=== PATIENT | female | born 1960 | race Caucasian/White ===

== ENCOUNTER 2016-11-03 18:10 | Emergency (ER) | payer MEDICARE ==
[~2016-11-03] VITALS: Ht 165.1 cm; Wt 158.0 kg
[~2016-11-03 18:10] MED LIST: ATOR-24 PO; CHOL100010 PO; CYAN10005 PO; GABA-113 PO; IRBE1TAB48 PO; TOPI25TA10 PO
[2016-11-03 18:15] VITALS: TEMP 36.8; Ht 165.1 cm; Wt 158.0 kg
--- NOTE | 2016-11-03 18:43 | EMERGENCY ROOM VISIT NOTE ---
History First contact with patient: 18:18 Chief Complaint: EDEMA TO EXTREMITY Stated Complaint: FEET LEGS SWOLLEN History of Present Illness The patient is a 56 year old female who presents to the Emergency Room via private vehicle with complaints of "feet/leg swollen". The patient states that she has been experiencing leg edema bilaterally for the past 2-3 months, but then states that she was started on what she believes was a water pill one year ago. She states that this is furosemide. She has only been taking this as needed. She states that for this past week she has been taking it daily, noting that it is 40 mg and although it does make her urinate her legs continue to enlarge. She states that they were enlarging to a point where it is painful to walk, there is a constant ache in them and the skin is begun to tear. There is associated shortness of breath, which she has attributed to her body habitus. She states that this has slightly worsened. She denies any history of blood clots, fevers, chills, history of heart failure. She is scheduled for a nuclear stress test soon as ordered by her family doctor from Dr. Mirta Rodas. She does not have a history of heart failure. Review of Systems A complete 10-point Review of Systems was discussed with the patient, with pertinent positives and negatives listed in the History of Present Illness. All remaining Review of Systems questions can be considered negative unless otherwise specified. Past Medical/Surgical History Medical Problems: (1) Ovarian cancer Family History FHx: cancer FHx: heart disease Social History Smoking Status: Current Every Day Smoker Marital Status: Housing Status: lives with family Occupation Status: disabled Current/Historical Medications Scheduled Atorvastatin (Lipitor), 1 TAB PO HS Duloxetine HCl (Duloxetine HCl), 30 MG PO DAILY Duloxetine HCl (Duloxetine HCl), 60 MG PO DAILY Furosemide (Lasix), 1 TAB PO DAILY Furosemide (Lasix), 1 TAB PO DAILY Gabapentin (Neurontin), 300 MG PO TID Irbesartan (Irbesartan), 150 MG PO DAILY Scheduled PRN Ibuprofen (Ibuprofen), 600 MG PO Q8 PRN for Pain Allergies Coded Allergies: No Known Allergies (Unverified , `, 04/26/15) Physical Exam Vital Signs Date Time Temp Pulse Resp B/P (MAP) Pulse Ox O2 Delivery O2 Flow Rate FiO2 11/03/16 23:31 80 14 124/76 97 11/03/16 23:26 82 20 97 11/03/16 23:11 83 15 97 11/03/16 22:56 96 21 97 11/03/16 22:31 103/85 11/03/16 22:26 81 14 97 11/03/16 22:11 80 17 96 11/03/16 22:01 112/72 11/03/16 21:56 87 20 95 11/03/16 21:41 88 23 96 11/03/16 21:36 89 26 96 11/03/16 21:31 129/72 11/03/16 21:29 138/75 11/03/16 20:36 99 24 94 11/03/16 20:32 147/81 11/03/16 20:21 86 18 97 11/03/16 20:06 85 21 99 11/03/16 20:01 123/81 11/03/16 19:51 86 21 97 11/03/16 19:38 91 16 96 11/03/16 19:36 93 13 97 11/03/16 19:31 131/78 11/03/16 19:25 91 19 98 11/03/16 19:10 92 18 96 11/03/16 19:06 98 Room Air 11/03/16 19:02 99 11/03/16 19:01 119/71 11/03/16 18:57 99/79 11/03/16 18:15 36.8 112 20 139/82 95 Room Air Physical Exam VITAL SIGNS - Vital signs and nursing notes were reviewed. Patient is afebrile , hypertensive at 139/82, tachycardic at a rate of 112 bpm, and is saturating on room air 95%. GENERAL -56-year-old female appearing her stated age who is in no acute distress. Communicates well with provider and answers questions appropriately. SKIN - Without rashes. No petechial rashes. The skin overlying the legs bilaterally is very tense. HEAD - NC/AT. EYES - Sclera anicteric. Palpebral conjunctiva pink and moist with no injection noted. MOUTH/OROPHARYNX - Without perioral cyanosis. NECK -no JVD LUNGS - Chest wall symmetric without accessory muscle use, intercostals retractions, or central cyanosis. Normal vesicular breath sounds CTA B/L. No wheezes, rales, or rhonchi appreciated. No crackles. CARDIAC - RRR with S1/S2. No murmur, rubs, or gallops appreciated. ABDOMEN - Abdominal contour without pulsations or visible masses. No tenderness , palpable masses, hepatosplenomegaly, or ascites noted. EXTREMITIES -there is 4+ pitting edema bilaterally in the lower extremities. Minimal edema in the upper extremities. NEUROLOGIC - Cranial nerves II through XII grossly intact. Sensory intact to light touch throughout. Medical Decision & Procedures ER Provider Diagnostic Interpretation: SINGLE VIEW CHEST CLINICAL HISTORY: Dyspnea. Lower extremity edema. FINDINGS: An AP, portable, upright chest radiograph is obtained. No prior studies are available for comparison at the time of dictation. The examination is severely degraded by portable technique, large body habitus, apical and out of positioning, and patient rotation. The cardiac silhouette is grossly normal for projection. The pulmonary vasculature is noncongested. The lungs and pleural spaces are grossly clear. No pneumothorax is seen. The bony thorax is grossly intact. Degenerative change and mild scoliosis are noted in the thoracic spine. IMPRESSION: No acute cardiopulmonary abnormality is identified. Electronically signed by: Mustapha De Leon M.D. 11/03/2016 6:58 PM Dictated Date/Time: 11/03/2016 6:57 PM ULTRASOUND BILATERAL LOWER EXTREMITY VENOUS CLINICAL HISTORY: Lower extremity edema. COMPARISON STUDY: No priors. TECHNIQUE: Real-time, grayscale, and color Doppler sonography of the deep veins of the right and left lower extremity was performed from the inguinal crease to the calf. Compression and augmentation were utilized. FINDINGS: There is no sonographic evidence of deep venous thrombosis identified in the right or left lower extremity. The common femoral, superficial femoral, and popliteal veins are patent and normally compressible bilaterally. The greater saphenous vein and the profunda femoris vein at the junction with the common femoral vein are clear in both legs. The visualized calf veins are patent bilaterally. IMPRESSION: There is no sonographic evidence of deep venous thrombosis identified in the right or left lower extremity. Electronically signed by: Mustapha De Leon M.D. 11/03/2016 9:30 PM Dictated Date/Time: 11/03/2016 9:[address] ANGIOGRAM OF THE CHEST CLINICAL HISTORY: Elevated d-dimer. Lower extremity edema. COMPARISON STUDY: Chest x-ray dated 11/03/2016. TECHNIQUE: Following the IV administration of 110 cc of Optiray 320, CT angiogram of the chest was performed from the upper abdomen to the thoracic inlet utilizing the pulmonary embolus protocol. Images are reviewed in the axial, sagittal, and coronal planes. 3-D MIPS images are created and assessed. IV contrast was administered without complication. The examination is degraded by large body habitus, and by streak artifact from the body wall abutting the CT gantry. CT DOSE: 759.89 mGy.cm FINDINGS: Thyroid: Imaged portions of the thyroid gland are normal in size and attenuation. Thoracic aorta: The thoracic aorta is normal in caliber and demonstrates standard 3-vessel arch anatomy. No dissection is seen. Pulmonary vasculature: The pulmonary trunk is normal in caliber. There are no filling defects identified in main, lobar, or segmental pulmonary branches to suggest pulmonary embolus. Heart: The heart is normal in size and configuration, and without pericardial effusion. Lungs and pleural spaces: The lungs and pleural spaces are clear noting bibasilar atelectasis. The trachea and central airways are patent. Mediastinum: There is no mediastinal lymphadenopathy. Leia: Clear. Axillae: There is no axillary lymphadenopathy. Upper abdomen: The liver is enlarged and steatotic. A tiny hiatal hernia is noted. Skeletal structures: No lytic or blastic bony lesions are seen. IMPRESSION: 1. There is no evidence of pulmonary embolus in the main, lobar, or segmental pulmonary arteries. 2. There is no airspace consolidation or pleural effusion. 3. Hepatomegaly and hepatic steatosis. Electronically signed by: Mustapha De Leon M.D. 11/03/2016 10:57 PM Dictated Date/Time: 11/03/2016 10:54 PM Laboratory Results 11/03/16 18:40 Red Blood Count 4.78, Mean Corpuscular Volume 95.8, Mean Corpuscular Hemoglobin 32.0, Mean Corpuscular Hemoglobin Concent 33.4, Mean Platelet Volume 9.8, Neutrophils (%) (Auto) 69.5, Lymphocytes (%) (Auto) 21.8, Monocytes (%) (Auto) 6.5, Eosinophils (%) (Auto) 1.4, Basophils (%) (Auto) 0.4, Neutrophils # (Auto) 5.58, Lymphocytes # (Auto) 1.75, Monocytes # (Auto) 0.52, Eosinophils # (Auto) 0.11, Basophils # (Auto) 0.03 11/03/16 18:40 Test 11/03/16 18:40 White Blood Count 8.02 K/uL (4.8-10.8) Red Blood Count 4.78 M/uL (4.2-5.4) Hemoglobin 15.3 g/dL (12.0-16.0) Hematocrit 45.8 % (37-47) Mean Corpuscular Volume 95.8 fL (80-100) Mean Corpuscular Hemoglobin 32.0 pg (25-34) Mean Corpuscular Hemoglobin Concent 33.4 g/dl (32-36) Platelet Count 198 K/uL (130-400) Mean Platelet Volume 9.8 fL (7.4-10.4) Neutrophils (%) (Auto) 69.5 % Lymphocytes (%) (Auto) 21.8 % Monocytes (%) (Auto) 6.5 % Eosinophils (%) (Auto) 1.4 % Basophils (%) (Auto) 0.4 % Neutrophils # (Auto) 5.58 K/uL (1.4-6.5) Lymphocytes # (Auto) 1.75 K/uL (1.2-3.4) Monocytes # (Auto) 0.52 K/uL (0.11-0.59) Eosinophils # (Auto) 0.11 K/uL (0-0.5) Basophils # (Auto) 0.03 K/uL (0-0.2) RDW Standard Deviation 53.0 fL (36.4-46.3) RDW Coefficient of Variation 15.1 % (11.5-14.5) Immature Granulocyte % (Auto) 0.4 % Immature Granulocyte # (Auto) 0.03 K/uL (0.00-0.02) D-Dimer 540 ug/L FEU (0-500) Anion Gap 8.0 mmol/L (3-11) Est Creatinine Clear Calc Drug Dose 97.7 ml/min Estimated GFR () 73.5 Estimated GFR (Non- 63.4 BUN/Creatinine Ratio 13.2 (10-20) Calcium Level 8.6 mg/dl (8.5-10.1) Total Bilirubin 0.2 mg/dl (0.2-1) Aspartate Amino Transf (AST/SGOT) 11 U/L (15-37) Alanine Aminotransferase (ALT/SGPT) 26 U/L (12-78) Alkaline Phosphatase 92 U/L (45-117) Total Protein 6.7 gm/dl (6.4-8.2) Albumin 3.1 gm/dl (3.4-5.0) Globulin 3.6 gm/dl (2.5-4.0) Albumin/Globulin Ratio 0.9 (0.9-2) Medical Decision Patient was seen and evaluated as above. After obtaining a thorough history and physical examination IV access was initiated and the above workup was performed. Patient presents to us today with shortness of breath and bilateral edema. Shortness of breath has been ongoing for 1 year as well as edema. Patient is stable at this time. Vital signs are stable. She is tachycardic at a rate of 112 bpm. BNP and troponin are normal. No evidence of heart failure. She is on Lasix. Her bedside EKG does reveal normal sinus rhythm, low voltage QRS septal infarct age undetermined. There is no previous for comparison. Patient states she has a nuclear stress test scheduled for this Saturday. I believe this will better evaluate this. No concerning leukocytosis or anemia noted. D-dimer high at 540. Electrolytes okay. Chloride high at 108. Creatinine 1.0. Random glucose at 117. AST low at 11. Albumin low at 3.1. Chest x-ray negative for acute process, mild scoliosis noted. Venous Doppler study negative bilaterally. In the chest CTA negative for PE. There is hepatomegaly, and hepatic steatosis of which the patient was informed to follow-up with her family doctor about. The patient did develop a little chest pain during her stay, which she states was when she was lying down when she was sat up she felt much better. This pain was reproducible with palpation. Patient was offered omission of the hospital, but prefers to go home with her follow-up stress test scheduled for Saturday. I do believe this is reasonable. At this time she is to use the CRISTINE hose, as well as diet modifications and lifestyle modifications. She is to return if worsening. She is to call her family doctor first thing Saturday morning to schedule follow-up. She was educated upon worrisome symptoms which to return, had questions or discharge, and was discharged home in good condition. She is currently on Lasix, but her prescriptions going to run out therefore I will fill this for 30 days. In evaluation treatment this patient following differential diagnoses entertained: SC, PE, heart failure, fluid overload, among others. Impression Primary Impression: Lower extremity edema Additional Impressions: Hepatomegaly Hepatic steatosis Shortness of breath Scoliosis of thoracic spine Departure Information Dispostion Home / Self-Care Condition FAIR Prescriptions Furosemide (LASIX) 40 Mg Tab 1 TAB PO DAILY for 30 Days, #30 TAB 5 Refills Prov: Christopher Henry PA-C 11/03/16 Referrals Betina Kirby M.D. (PCP) Patient Instructions My [facility] Additional Instructions You were seen in the emergency department today for your lower extremity swelling as well as your shortness of breath. At this time your EKG does show an abnormality, of which we recommend you pursue the nuclear stress test your you have scheduled and follow-up with her family doctor. Please also follow-up for your high blood pressure. Please call your family doctor first thing Saturday morning to schedule follow-up for your shortness of breath and leg swelling. It is recommended to restrict salt in your diet, and begin an exercise regimen to help promote fluid movement in the legs. Please use the stockings you were provided, it is best to take them off while sleeping, and when you wake up in the morning before you get out of bed please put them on that way throughout the day they will help with the gravity and pulling of the fluid. I did refill the Lasix prescription and sent it to your pharmacy. Please continue this but follow-up with your family doctor soon as possible. If you develop worsening of her symptoms please return immediately. Please return to the emergency department with any new/concerning symptoms. Thank you for your time. Problem Qualifiers Additional Impressions: Scoliosis of thoracic spine Scoliosis type: unspecified scoliosis Qualified Codes: M41.9 - Scoliosis, unspecified
[2016-11-03 18:50] LABS: BASO % 0.4 %; BASO ABS # 0.03 K/uL (0-0.2); COMPLETE YES; EOS % 1.4 %; HEMATOCRIT 45.8 % (37-47); IG% 0.4 %; LYMPH % 21.8 %; LYMPH ABS # 1.75 K/uL (1.2-3.4); MEAN CELL VOLUME 95.8 fL (80-100); MEAN CORPUSCULAR HGB CONC 33.4 g/dl (32-36); MEAN PLATELET VOLUME 9.8 fL (7.4-10.4); MONO % 6.5 %; NEUT % 69.5 %; PLATELET COUNT 198 K/uL (130-400); RED BLOOD COUNT 4.78 M/uL (4.2-5.4); WHITE BLOOD COUNT 8.02 K/uL (4.8-10.8)
[2016-11-03] MEDS ORDERED: MTR/600 PO (18:50)
[2016-11-03] MEDS ORDERED: CYM60 PO (18:51)
[2016-11-03] MEDS ORDERED: CYM30 PO (18:51)
[2016-11-03] MEDS ORDERED: FURO-85 PO (18:51)
--- NOTE | 2016-11-03 19:00 | DIAGNOSTIC IMAGING REPORT ---
SINGLE VIEW CHEST CLINICAL HISTORY: Dyspnea. Lower extremity edema. FINDINGS: An AP, portable, upright chest radiograph is obtained. No prior studies are available for comparison at the time of dictation. The examination is severely degraded by portable technique, large body habitus, apical and out of positioning, and patient rotation. The cardiac silhouette is grossly normal for projection. The pulmonary vasculature is noncongested. The lungs and pleural spaces are grossly clear. No pneumothorax is seen. The bony thorax is grossly intact. Degenerative change and mild scoliosis are noted in the thoracic spine. IMPRESSION: No acute cardiopulmonary abnormality is identified. Electronically signed by: Mustapha De Leon M.D. 11/03/2016 6:58 PM Dictated Date/Time: 11/03/2016 6:57 PM
[2016-11-03 19:06] VITALS: O2SAT 98
[2016-11-03 19:07] LABS: BUN/CREATININE RATIO 13.2 (10-20); CALCIUM 8.6 mg/dl (8.5-10.1)
[2016-11-03 19:10] LABS: ALB/GLOB RATIO 0.9 (0.9-2)
--- NOTE | 2016-11-03 21:31 | DIAGNOSTIC IMAGING REPORT ---
ULTRASOUND BILATERAL LOWER EXTREMITY VENOUS CLINICAL HISTORY: Lower extremity edema. COMPARISON STUDY: No priors. TECHNIQUE: Real-time, grayscale, and color Doppler sonography of the deep veins of the right and left lower extremity was performed from the inguinal crease to the calf. Compression and augmentation were utilized. FINDINGS: There is no sonographic evidence of deep venous thrombosis identified in the right or left lower extremity. The common femoral, superficial femoral, and popliteal veins are patent and normally compressible bilaterally. The greater saphenous vein and the profunda femoris vein at the junction with the common femoral vein are clear in both legs. The visualized calf veins are patent bilaterally. IMPRESSION: There is no sonographic evidence of deep venous thrombosis identified in the right or left lower extremity. Electronically signed by: Mustapha De Leon M.D. 11/03/2016 9:30 PM Dictated Date/Time: 11/03/2016 9:29 PM
[2016-11-03] MEDS ORDERED: OPTIRAY 320 IV PRN (22:30)
--- NOTE | 2016-11-03 22:58 | DIAGNOSTIC IMAGING REPORT ---
CT ANGIOGRAM OF THE CHEST CLINICAL HISTORY: Elevated d-dimer. Lower extremity edema. COMPARISON STUDY: Chest x-ray dated 11/03/2016. TECHNIQUE: Following the IV administration of 110 cc of Optiray 320, CT angiogram of the chest was performed from the upper abdomen to the thoracic inlet utilizing the pulmonary embolus protocol. Images are reviewed in the axial, sagittal, and coronal planes. 3-D MIPS images are created and assessed. IV contrast was administered without complication. The examination is degraded by large body habitus, and by streak artifact from the body wall abutting the CT gantry. CT DOSE: 759.89 mGy.cm FINDINGS: Thyroid: Imaged portions of the thyroid gland are normal in size and attenuation. Thoracic aorta: The thoracic aorta is normal in caliber and demonstrates standard 3-vessel arch anatomy. No dissection is seen. Pulmonary vasculature: The pulmonary trunk is normal in caliber. There are no filling defects identified in main, lobar, or segmental pulmonary branches to suggest pulmonary embolus. Heart: The heart is normal in size and configuration, and without pericardial effusion. Lungs and pleural spaces: The lungs and pleural spaces are clear noting bibasilar atelectasis. The trachea and central airways are patent. Mediastinum: There is no mediastinal lymphadenopathy. Leia: Clear. Axillae: There is no axillary lymphadenopathy. Upper abdomen: The liver is enlarged and steatotic. A tiny hiatal hernia is noted. Skeletal structures: No lytic or blastic bony lesions are seen. IMPRESSION: 1. There is no evidence of pulmonary embolus in the main, lobar, or segmental pulmonary arteries. 2. There is no airspace consolidation or pleural effusion. 3. Hepatomegaly and hepatic steatosis. Electronically signed by: Mustapha De Leon M.D. 11/03/2016 10:57 PM Dictated Date/Time: 11/03/2016 10:54 PM
[2016-11-03] MEDS ORDERED: FURO40TA3 PO (23:11)
[2016-11-03 23:31] VITALS: BP 124/76; PULSE 80; O2SAT 97
[2016-11-05 10:39] LABS: POINT OF CARE PRO-BNP 88 pg/ml (0-900); POINT OF CARE TROPONIN I < 0.030 ng/ml (0-0.045)
== END 2016-11-03 23:34 | disposition home or self-care (01) ==
LOC: C.EDB 18:11 → C.EDC 23:34
DX: R60.0 Localized edema (principal); R16.0 Hepatomegaly, not elsewhere classified; K76.0 Fatty (change of) liver, not elsewhere classified; R06.02 Shortness of breath; M41.9 Scoliosis, unspecified; F17.200 Nicotine dependence, unspecified, uncomplicated; Z85.43 Personal history of malignant neoplasm of ovary

== ENCOUNTER → 2016-11-09 | Outpatient (CLI) | payer MEDICARE ==
[~2016-11-09] MED LIST changes: +CAPS0.022 TOP; -CHOL100010 PO; -CYAN10005 PO; +CYM30 PO; +CYM60 PO; +FLX10 PO; +FURO-85 PO; +FURO40TA3 PO; +MELO15TA4 PO; +MTR/600 PO; +PREG1CAP70 PO; +REGADENOSON 0.4 MG/5 ML SYR ONE; -TOPI25TA10 PO
--- NOTE | 2016-11-09 17:37 | Myocardial Perfusion Study ---
Myocardial Perfusion Study Rpt Myocardial Perfusion Study Rpt Date of Service November 09, 2016 Myocardial Perfusion Study Rpt ONE DAY NUCLEAR MEDICINE TECHNETIUM 99 M CARDIOLITE MYOCARDIAL PERFUSION SCAN CLINICAL HISTORY: Chest pain syndrome COMPARISONS: None TECHNIQUE: For the stress portion of the study, 33.0 mCi of technetium 99 M Cardiolite IV was injected at 1:25 p.m. on November 09, 2016. 30 minutes following the injection, imaging of the heart was performed in multiple projections. For the rest portion of the study 11.5 mCi of technetium 99 M Cardiolite IV was injected at 11:35 a.m.. One hour following the injection, imaging of the heart was performed in the same projections. For the stress portion of the study, 0.4 mg of Lexiscan was injected intravenously as per protocol. The patient tolerated the infusion without difficulty. There were no EKG changes. Following the study, the patient was hemodynamically stable and without complaints. FINDINGS: The short axis, vertical long axis, and horizontal long axis images were reviewed in detail. There is normal perfusion at both stress and rest thus excluding a prior myocardial infarction or stress-induced myocardial ischemia. The left ventricle demonstrates hyperdynamic systolic function without wall motion abnormalities. The left ventricular ejection fraction is greater than 70 percent. IMPRESSION: 1. No scintigraphic evidence of a prior myocardial infarction or stress-induced myocardial ischemia. 2. No Lexiscan induced chest pain 3. No Lexiscan induced EKG changes. 4. Hyperdynamic left ventricular ejection fraction of greater than 70 percent without wall motion abnormalities.
== END | disposition home or self-care (01) ==
LOC: C.NUCL 10:59
PROVIDERS: ATTEND Physician Assistant Medical
DX: R07.9 Chest pain, unspecified (principal)

== ENCOUNTER 2017-01-13 10:10 | Emergency (ER) | payer MEDICARE ==
[~2017-01-13] VITALS: Ht 165.1 cm; Wt 149.3 kg
[~2017-01-13 10:10] MED LIST changes: -CAPS0.022 TOP; -FLX10 PO; -MELO15TA4 PO; -PREG1CAP70 PO; -REGADENOSON 0.4 MG/5 ML SYR ONE
[2017-01-13 10:13] VITALS: TEMP 36.3; Ht 165.1 cm; Wt 149.3 kg
[2017-01-13] MEDS ORDERED: FLX10 PO (10:20)
[2017-01-13] MEDS ORDERED: MELO15TA4 PO (10:20)
[2017-01-13] MEDS ORDERED: PREG1CAP70 PO (11:09)
[2017-01-13 11:11] LABS: BASO % 0.3 %; BASO ABS # 0.03 K/uL (0-0.2); COMPLETE YES; EOS % 2.3 %; IG% 0.5 %; LYMPH % 17.6 %; LYMPH ABS # 1.82 K/uL (1.2-3.4); MEAN CELL VOLUME 96.8 fL (80-100); MEAN CORPUSCULAR HGB CONC 34.1 g/dl (32-36); MEAN PLATELET VOLUME 10.3 fL (7.4-10.4); MONO % 7.3 %; PLATELET COUNT 194 K/uL (130-400); RED BLOOD COUNT 5.06 M/uL (4.2-5.4); WHITE BLOOD COUNT 10.35 K/uL (4.8-10.8)
[2017-01-13 11:11] LABS: URINE APPEARANCE CLEAR (CLEAR); URINE BILIRUBIN NEG (NEG); URINE COLOR YELLOW; URINE NITRITE NEG (NEG); URINE PH 5.5 (4.5-7.5); URINE SPECIFIC GRAVITY 1.008 (1.000-1.030); UROBILINOGEN NEG (NEG); ZZUR CULT IF INDIC CLEAN CATCH NO
--- NOTE | 2017-01-13 11:12 | DIAGNOSTIC IMAGING REPORT ---
CHEST ONE VIEW PORTABLE CLINICAL HISTORY: Back and left-sided rib pain. COMPARISON STUDY: Chest radiograph and chest CT November 03, 2016. FINDINGS: Evaluation is suboptimal due to portable technique and body habitus. However, no pneumothorax or pleural effusion is identified. There is no evidence of pulmonary edema. Cardiomediastinal silhouette is normal. There is no consolidation to suggest pneumonia. The appearance of the chest is unchanged. IMPRESSION: No acute cardiopulmonary findings. Electronically signed by: Iain Ferris M.D. 01/13/2017 11:11 AM Dictated Date/Time: 01/13/2017 11:10 AM
[2017-01-13] MEDS ORDERED: HYDROmorphone INJ 1 MG/ML SYR IV STA (11:16)
[2017-01-13 11:19] LABS: MANUAL MICROSCOPIC REQUIRED? NO; REVIEW REQ? NO
[2017-01-13 11:21] LABS: BUN/CREATININE RATIO 16.4 (10-20); CALCIUM 9.3 mg/dl (8.5-10.1); CREATININE 0.85 mg/dl (0.60-1.20)
[2017-01-13 11:24] LABS: ALB/GLOB RATIO 0.8 (0.9-2)
[2017-01-13] MEDS ORDERED: OPTIRAY 320 IV PRN (11:45)
--- NOTE | 2017-01-13 12:22 | DIAGNOSTIC IMAGING REPORT ---
CT ANGIOGRAPHY OF THE CHEST, PULMONARY EMBOLUS PROTOCOL CLINICAL HISTORY: Left flank pain, severe back pain and elevated d-dimer. COMPARISON STUDY: Chest CT November 03, 2016 and chest radiograph performed earlier today. TECHNIQUE: Following IV administration of 95 mL of Optiray-320, helical axial images of the chest were obtained utilizing the pulmonary embolus protocol. Maximal intensity projections and sagittal and coronal reformats were viewed on an independent 3D workstation. IV contrast was administered without complication. A dose lowering technique was utilized adhering to the principles of ALARA. CT DOSE: 606.90 mGy.cm FINDINGS: No pulmonary emboli are identified. There is no evidence of thoracic aortic dissection. Size of the heart is normal. There is no pericardial effusion. No enlarged thoracic lymph nodes are present. Central airways are patent. There is no pneumothorax or pleural effusion. There is no consolidation to suggest pneumonia. Bony thorax is unremarkable. IMPRESSION: 1. No pulmonary emboli identified. 2. No thoracic aortic dissection. 3. No acute intrathoracic findings. Electronically signed by: Iain Ferris M.D. 01/13/2017 12:21 PM Dictated Date/Time: 01/13/2017 12:15 PM
[2017-01-13] MEDS ORDERED: CAPS0.022 TOP (13:16)
--- NOTE | 2017-01-13 13:17 | EMERGENCY ROOM VISIT NOTE ---
History First contact with patient: 10:19 Chief Complaint: BACK PAIN Stated Complaint: SEVERE BACK PAIN History of Present Illness The patient is a 56 year old female who presents to the Emergency Room with complaints of severe left-sided flank/back pain 4 weeks. The patient states that her pain has been gradually worsening over the past 4 weeks. She was seen at [facility] emergency department and had a CT scan of her abdomen, labs and urinalysis, all of which were negative. She was told to follow-up with her primary care provider, but she called and they are not able to see her until next week. She rates her discomfort a 10/10. She denies any aggravating or alleviating factors. She has been taking hydrocodone at home without relief. She reports chronic numbness in her legs, but denies any new numbness or weakness. She denies nausea, vomiting or urinary symptoms. She denies shortness of breath or chest pain. She is a smoker. She denies any history of blood clots in the lungs. She denies cough. Review of Systems A complete 10 point review of systems was reviewed with the patient with pertinent positives and negatives as per history of present illness. All else were negative. Past Medical/Surgical History Medical Problems: (1) Ovarian cancer Family History FHx: cancer FHx: heart disease Social History Smoking Status: Current Every Day Smoker Marital Status: Housing Status: lives with family Occupation Status: disabled Current/Historical Medications Scheduled Atorvastatin (Lipitor), 1 TAB PO HS Cyclobenzaprine HCl (Cyclobenzaprine HCl), 10 MG PO BID Duloxetine HCl (Duloxetine HCl), 30 MG PO DAILY Duloxetine HCl (Duloxetine HCl), 60 MG PO DAILY Furosemide (Lasix), 1 TAB PO DAILY Irbesartan (Irbesartan), 150 MG PO DAILY Meloxicam (Meloxicam), 15 MG PO DAILY Pregabalin (Lyrica), 150 MG PO BID Scheduled PRN Capsaicin (Capsaicin), 1 APPLN TOP TID PRN for Pain Ibuprofen (Ibuprofen), 600 MG PO Q8 PRN for Pain Physical Exam Vital Signs Date Time Temp Pulse Resp B/P (MAP) Pulse Ox O2 Delivery O2 Flow Rate FiO2 01/13/17 13:42 77 18 131/76 98 01/13/17 12:10 77 18 133/77 98 Room Air 01/13/17 10:13 36.3 88 18 135/90 98 Room Air Physical Exam VITALS: Vitals are noted on the nurse's note and reviewed by myself. Vital signs stable. GENERAL: This is a 56-year-old female, in no acute distress, nondiaphoretic, well-developed well-nourished. SKIN: There are multiple small scars on the left flank and right flank consistent with previous abscesses. HEAD: Normocephalic atraumatic. EARS: External auditory canals clear, tympanic membranes pearly patterson without erythema or effusion bilaterally. EYES: Pupils equal round and reactive to light and accommodation. MOUTH: Mucous membranes moist. NECK: Supple without nuchal rigidity. No lymphadenopathy. HEART: Regular rate and rhythm without murmurs gallops or rubs. LUNGS: Clear to auscultation bilaterally without wheezes, rales or rhonchi. ABDOMEN: Soft, no abdominal tenderness to palpation. MUSCULOSKELETAL: There is mild, vague tenderness to the left flank. No tenderness over the thoracic spinous processes. NEURO: Patient is alert and oriented. Medical Decision & Procedures ER Provider Diagnostic Interpretation: CHEST ONE VIEW PORTABLE FINDINGS: Evaluation is suboptimal due to portable technique and body habitus. However, no pneumothorax or pleural effusion is identified. There is no evidence of pulmonary edema. Cardiomediastinal silhouette is normal. There is no consolidation to suggest pneumonia. The appearance of the chest is unchanged. IMPRESSION: No acute cardiopulmonary findings. CT ANGIOGRAPHY OF THE CHEST, PULMONARY EMBOLUS PROTOCOL FINDINGS: No pulmonary emboli are identified. There is no evidence of thoracic aortic dissection. Size of the heart is normal. There is no pericardial effusion. No enlarged thoracic lymph nodes are present. Central airways are patent. There is no pneumothorax or pleural effusion. There is no consolidation to suggest pneumonia. Bony thorax is unremarkable. IMPRESSION: 1. No pulmonary emboli identified. 2. No thoracic aortic dissection. 3. No acute intrathoracic findings. Laboratory Results 01/13/17 10:55 Red Blood Count 5.06, Mean Corpuscular Volume 96.8, Mean Corpuscular Hemoglobin 33.0, Mean Corpuscular Hemoglobin Concent 34.1, Mean Platelet Volume 10.3, Neutrophils (%) (Auto) 72.0, Lymphocytes (%) (Auto) 17.6, Monocytes (%) (Auto) 7.3, Eosinophils (%) (Auto) 2.3, Basophils (%) (Auto) 0.3, Neutrophils # (Auto) 7.45, Lymphocytes # (Auto) 1.82, Monocytes # (Auto) 0.76, Eosinophils # (Auto) 0.24, Basophils # (Auto) 0.03 01/13/17 10:55 Test 01/13/17 10:55 01/13/17 11:00 White Blood Count 10.35 K/uL (4.8-10.8) Red Blood Count 5.06 M/uL (4.2-5.4) Hemoglobin 16.7 g/dL (12.0-16.0) Hematocrit 49.0 % (37-47) Mean Corpuscular Volume 96.8 fL (80-100) Mean Corpuscular Hemoglobin 33.0 pg (25-34) Mean Corpuscular Hemoglobin Concent 34.1 g/dl (32-36) Platelet Count 194 K/uL (130-400) Mean Platelet Volume 10.3 fL (7.4-10.4) Neutrophils (%) (Auto) 72.0 % Lymphocytes (%) (Auto) 17.6 % Monocytes (%) (Auto) 7.3 % Eosinophils (%) (Auto) 2.3 % Basophils (%) (Auto) 0.3 % Neutrophils # (Auto) 7.45 K/uL (1.4-6.5) Lymphocytes # (Auto) 1.82 K/uL (1.2-3.4) Monocytes # (Auto) 0.76 K/uL (0.11-0.59) Eosinophils # (Auto) 0.24 K/uL (0-0.5) Basophils # (Auto) 0.03 K/uL (0-0.2) RDW Standard Deviation 52.3 fL (36.4-46.3) RDW Coefficient of Variation 14.8 % (11.5-14.5) Immature Granulocyte % (Auto) 0.5 % Immature Granulocyte # (Auto) 0.05 K/uL (0.00-0.02) D-Dimer 1160 ug/L FEU (0-500) Anion Gap 7.0 mmol/L (3-11) Est Creatinine Clear Calc Drug Dose 110.9 ml/min Estimated GFR () 89.4 Estimated GFR (Non- 77.1 BUN/Creatinine Ratio 16.4 (10-20) Calcium Level 9.3 mg/dl (8.5-10.1) Total Bilirubin 0.3 mg/dl (0.2-1) Aspartate Amino Transf (AST/SGOT) 13 U/L (15-37) Alanine Aminotransferase (ALT/SGPT) 29 U/L (12-78) Alkaline Phosphatase 120 U/L (45-117) Total Protein 7.6 gm/dl (6.4-8.2) Albumin 3.4 gm/dl (3.4-5.0) Globulin 4.2 gm/dl (2.5-4.0) Albumin/Globulin Ratio 0.8 (0.9-2) Lipase 137 U/L (73-393) Urine Color YELLOW Urine Appearance CLEAR (CLEAR) Urine pH 5.5 (4.5-7.5) Urine Specific [place] 1.008 (1.000-1.030) Urine Protein NEG (NEG) Urine Glucose (UA) NEG (NEG) Urine Ketones NEG (NEG) Urine Occult Blood NEG (NEG) Urine Nitrite NEG (NEG) Urine Bilirubin NEG (NEG) Urine Urobilinogen NEG (NEG) Urine Leukocyte Esterase NEG (NEG) Medications Administered Medications (Trade) Dose Ordered Sig/Mack Route Start Time Stop Time Status Last Admin Dose Admin Hydromorphone HCl (Dilaudid Inj) 1 mg NOW STAT IV 01/13/17 11:16 01/13/17 11:17 DC 01/13/17 11:25 1 MG ED Course The patient was evaluated as above. Labs were drawn and IV access was obtained. Patient was medicated with 1 mg Dilaudid IV. D-dimer was found to be elevated. Findings were discussed with the patient. CT of the chest was performed and read by radiology as above. Patient was reevaluated and felt much better. Findings were discussed. Discharge instructions were reviewed with the patient. The patient verbalized understanding of my assessment and treatment plan and was discharged home in good condition. Medical Decision Differential diagnosis includes pulmonary embolism, pneumonia, pyelonephritis, kidney stone, herpes zoster, musculoskeletal pain, among others. The patient is a 56-year-old female who presents today complaining of left flank pain. Labs revealed no leukocytosis, anemia or concerning electrolyte abnormality. Urinalysis was not suggestive of infection. There was no blood in the urine. D-dimer was found to be elevated and CT of the chest for PE was performed and showed no evidence of pulmonary embolism. The patient evidently already had a CT of the abdomen and pelvis performed at [facility]. I did attempt to obtain these records, but did not receive anything from the [facility]. The source of the patient's pain is unclear. She may have herpes zoster, but does not have a rash at this time. She was given capsaicin cream and instructed to follow-up with herpes be as scheduled. Based on the patient's presentation and work up, I feel the patient is stable for outpatient treatment. The patient was educated to return to the emergency department for any worsening of their current condition or new/concerning symptoms. She will follow up with her PCP. The patient's case was reviewed with Dr. Tomlin, ED attending physician, who agreed with my assessment and treatment plan. Medication Reconcilliation Current Medication List: was personally reviewed by me Blood Pressure Screening Patient's blood pressure: Elevated blood pressure Blood pressure disposition: Elevated BP felt to be situational Impression Primary Impression: Left flank pain Departure Information Dispostion Home / Self-Care Condition GOOD Prescriptions Capsaicin (CAPSAICIN) 0.025 % Cre 1 APPLN TOP TID Y for Pain, #1 TUBE Prov: Dione Alexandra ., ALEJANDRO 01/13/17 Referrals Betina Kirby M.D. (PCP) Patient Instructions My [facility] Additional Instructions For pain control, you can use the following [id number] medicines (if >12 yo): - Regular strength (325mg/tab) Tylenol (acetaminophen) 2 tabs every 4-6 hours as needed. Do not exceed 12 tablets in a 24 hour period. Avoid taking more than 4 grams (4000 mg) of Tylenol per day. This includes any other sources of acetaminophen you may take on a regular basis. - Regular strength (200 mg/tab) Advil (ibuprofen) 1-2 tabs every 4-6 hours as needed. Do not exceed a dose of 3200 mg per day. Apply the capsaicin cream 2-3 times daily as needed for pain. Follow-up with your primary care provider for further evaluation. Return to the emergency department with any worsening or new/concerning symptoms.
[2017-01-13 13:42] VITALS: BP 131/76; PULSE 77; O2SAT 98
== END 2017-01-13 13:45 | disposition home or self-care (01) ==
LOC: C.EDB 10:11 → C.EDC 13:45
DX: R10.30 Lower abdominal pain, unspecified (principal); F17.210 Nicotine dependence, cigarettes, uncomplicated; R20.0 Anesthesia of skin; Z85.43 Personal history of malignant neoplasm of ovary; Z80.9 Family history of malignant neoplasm, unspecified; Z79.899 Other long term (current) drug therapy

== ENCOUNTER 2019-10-28 22:12 | Observation (INO) ==
--- NOTE | 2019-10-28 22:57 | Emergency Department Note ---
History of Present Illness General Chief complaint: Nausea Stated complaint: NAUSEA - LOWER BACK PAIN - VOMITING Time Seen by Provider: 10/28/19 22:43 History of Present Illness Maximum Pain Intensity: 7 This is a 59-year-old female that presents to the emergency department via private vehicle with complaints of "nausea, lower back pain, vomiting". The patient states that the past few days she has been experiencing abdominal discomfort and nausea. Late last night she developed right-sided lower abdominal pain and then she notes that this persisted and then developed nausea. She states that the persistence of pain and nausea caused her to present to [facility] emergency department shortly before noon time today. She states that she had a CT scan and has a hernia in the ventral region. She states that she was discharged and then returned later in the evening time and was going to had another CT scan but she states that she left AMA as she felt the staff was rude. She presents to us today noting persistent nausea and vomiting and points to the epigastric region as a location of discomfort that she currently rates as a 7/10. She states that after leaving AMA from [place] she came directly here. Home Medications Home Medications Medication Instructions Recorded Confirmed Type atorvastatin 20 mg PO DAILY 10/28/19 10/28/19 History ciprofloxacin HCl [Cipro] 500 mg PO BID 10/28/19 10/28/19 History cyclobenzaprine 10 mg PO BID PRN 10/28/19 10/28/19 History diazepam 5 mg PO Q12 PRN 10/28/19 10/28/19 History duloxetine 30 mg PO DAILY 10/28/19 10/28/19 History irbesartan 150 mg PO DAILY 10/28/19 10/28/19 History triamterene-hydrochlorothiazid 1 tab PO DAILY 10/28/19 10/28/19 History Allergies Allergy/AdvReac Type Severity Reaction Status Date / Time No Known Allergies Allergy ` Unverified 10/28/19 22:54 Past Med/Surg History Medical History Hx of ovarian cancer Surgical History Hx of cholecystectomy Hx of hernia repair Social History Preferred Language: [place]arag[place] Communication Ability: Effective Slackline Operator Required: No Beliefs That Will Affect Care: None Current Living Situation: Spouse and Family Other Information That Helps Us Care for You: No Feels Safe at Home: Yes Safety Concerns: Feels Safe At This Time Smoking Status: Current every day smoker Tobacco Type: cigarettes ; Cigarettes Per Day: 10 ; Do You Dip or Chew Tobacco: No ; Second Hand Exposure: Yes ; Tobacco Cessation Education Requested by Patient: No Hx Alcohol Use: No Hx Substance Use: Yes substance use type: marijuana Substance Use Type Other:: medical marijuana use here and there Last Used Substance: Hours (ago) Review of Systems A total of 10 systems reviewed and were otherwise negative Physical Exam Vital Signs Vital Signs - 24 hr 10/28/19 22:15 10/28/19 23:35 10/29/19 00:05 Temperature 36.5 C Temperature Source Oral Pulse Rate 86 Pulse Rate [Apical] 60 82 Respiratory Rate 22 18 24 Respiratory Effort / Characteristics Non-Labored Respiratory Depth Normal Normal Blood Pressure 117/84 Blood Pressure [Left Arm] Blood Pressure [Right Arm] 134/98 138/80 Blood Pressure Mean 95 Blood Pressure Mean [Left Arm] Blood Pressure Mean [Right Arm] 110 99 Blood Pressure Position [Left Arm] Pulse Oximetry 98 96 98 Oxygen Delivery Method Room Air Room Air Room Air Oxygen Flow Rate Sepsis Recent Fever Within 48 Hours No Sepsis Action Taken by Nursing No Action Required 10/29/19 00:19 10/29/19 00:21 10/29/19 00:30 Temperature Temperature Source Pulse Rate 87 Pulse Rate [Apical] Respiratory Rate 18 20 Respiratory Effort / Characteristics Respiratory Depth Blood Pressure 140/76 Blood Pressure [Left Arm] Blood Pressure [Right Arm] Blood Pressure Mean 112 Blood Pressure Mean [Left Arm] Blood Pressure Mean [Right Arm] Blood Pressure Position [Left Arm] Pulse Oximetry 88 L 93 97 Oxygen Delivery Method Room Air Nasal Cannula Oxygen Flow Rate 3 Sepsis Recent Fever Within 48 Hours Sepsis Action Taken by Nursing 10/29/19 00:58 10/29/19 01:00 10/29/19 01:16 Temperature Temperature Source Pulse Rate 78 Pulse Rate [Apical] 73 Respiratory Rate 18 16 Respiratory Effort / Characteristics Non-Labored Respiratory Depth Normal Blood Pressure 107/61 Blood Pressure [Left Arm] 101/70 Blood Pressure [Right Arm] 92/53 L Blood Pressure Mean 67 Blood Pressure Mean [Left Arm] 80 Blood Pressure Mean [Right Arm] 66 Blood Pressure Position [Left Arm] Pulse Oximetry 96 95 Oxygen Delivery Method Nasal Cannula Nasal Cannula Oxygen Flow Rate 3 3 Sepsis Recent Fever Within 48 Hours Sepsis Action Taken by Nursing 10/29/19 01:30 10/29/19 01:45 10/29/19 02:00 Temperature Temperature Source Pulse Rate 81 83 79 Pulse Rate [Apical] Respiratory Rate 18 19 18 Respiratory Effort / Characteristics Respiratory Depth Blood Pressure 131/72 136/96 99/56 L Blood Pressure [Left Arm] Blood Pressure [Right Arm] Blood Pressure Mean 83 101 61 Blood Pressure Mean [Left Arm] Blood Pressure Mean [Right Arm] Blood Pressure Position [Left Arm] Pulse Oximetry 94 96 94 Oxygen Delivery Method Nasal Cannula Oxygen Flow Rate 3 Sepsis Recent Fever Within 48 Hours Sepsis Action Taken by Nursing 10/29/19 02:12 10/29/19 02:15 10/29/19 02:30 Temperature Temperature Source Pulse Rate 91 H 80 92 H Pulse Rate [Apical] Respiratory Rate 15 17 18 Respiratory Effort / Characteristics Respiratory Depth Blood Pressure 99/56 L 108/58 L 123/78 Blood Pressure [Left Arm] Blood Pressure [Right Arm] Blood Pressure Mean 61 72 93 Blood Pressure Mean [Left Arm] Blood Pressure Mean [Right Arm] Blood Pressure Position [Left Arm] Pulse Oximetry 93 94 94 Oxygen Delivery Method Nasal Cannula Nasal Cannula Nasal Cannula Oxygen Flow Rate 3 3 3 Sepsis Recent Fever Within 48 Hours Sepsis Action Taken by Nursing 10/29/19 02:45 Temperature Temperature Source Pulse Rate Pulse Rate [Apical] 82 Respiratory Rate 16 Respiratory Effort / Characteristics Respiratory Depth Normal Blood Pressure Blood Pressure [Left Arm] 121/90 Blood Pressure [Right Arm] Blood Pressure Mean Blood Pressure Mean [Left Arm] 100 Blood Pressure Mean [Right Arm] Blood Pressure Position [Left Arm] Lying Pulse Oximetry 96 Oxygen Delivery Method Room Air Oxygen Flow Rate Sepsis Recent Fever Within 48 Hours Sepsis Action Taken by Nursing VITAL SIGNS - Vital signs and nursing notes were reviewed. Stable and afebrile. GENERAL -59-year-old female appearing her stated age who is in no acute distress but appears to be in pain and is holding the epigastric region with her hands. Communicates well with provider and answers questions appropriately. SKIN - Without rashes. HEAD - NC/AT. EYES - Sclera anicteric. EARS - No deformities of external structures noted on gross examination bilaterally. NOSE - Midline and without cyanosis. No epistaxis or purulent drainage noted. MOUTH/OROPHARYNX - Without perioral cyanosis. NECK - Neck with FROM. LUNGS - Chest wall symmetric without accessory muscle use, intercostals retractions, or central cyanosis. Normal vesicular breath sounds CTA B/L. No wheezes, rales, or rhonchi appreciated. CARDIAC - RRR with S1/S2. No murmur, rubs, or gallops appreciated. ABDOMEN - Abdominal contour normal without pulsations or visible masses. BS normoactive all four quadrants. Epigastric TTP noted. No palpable hernia on examination. It is important note that small hernias may un appreciable secondary to body habitus. No palpable masses, hepatosplenomegaly, or ascites noted. EXTREMITIES - No clubbing or peripheral cyanosis. No pretibial edema present. +5/5 strength noted in UE/LE bilaterally. NEUROLOGIC - Cranial nerves II through XII grossly intact. Sensory intact to light touch throughout. PSYCH - A&O, and cooperates fully with examiner. Pt is very pleasant and interacts well with examiner. Course Administered Medications Sodium Chloride (Nss 1000ml) 1,000 mls @ 150 mls/hr IV .Q6H40M [facility] Stop: 11/28/19 04:33 Last Admin: 10/29/19 06:45 Dose: 150 mls/hr Documented by: [id number] Metronidazole (Flagyl) 500 mg in 100 mls @ 100 mls/hr IV Q8H [facility] Stop: 11/08/19 04:59 Last Infusion: 10/29/19 06:05 Dose: 0 mls/hr Documented by: [id number] Admin: 10/29/19 05:02 Dose: 100 mls/hr Documented by: [id number] Ciprofloxacin (Cipro) 400 mg in 200 mls @ 100 mls/hr IV Q12H [facility]; Protocol Stop: 11/08/19 05:59 Last Infusion: 10/29/19 07:02 Dose: 0 mls/hr Documented by: [id number] Admin: 10/29/19 05:02 Dose: 100 mls/hr Documented by: [id number] Ioversol (Optiray 320 125ml) 125 ml IV ONCE PRN PRN Reason: Interaction Checking Stop: 11/02/19 00:55 Last Admin: 10/29/19 00:56 Dose: 117 ml Documented by: [id number] Discontinued Medications Famotidine (Pepcid 20mg Iv Push) 20 mg IV ONE STA Stop: 10/29/19 03:54 Last Admin: 10/29/19 03:58 Dose: 20 mg Documented by: [id number] Sodium Chloride (Nss 1000ml) 1,000 mls @ 250 mls/hr IV .Q4H [facility] Stop: 10/29/19 04:44 Last Infusion: 10/29/19 06:45 Dose: 0 mls/hr Documented by: [id number] Admin: 10/29/19 00:58 Dose: 250 mls/hr Documented by: [id number] Morphine Sulfate (Morphine Sulfate) 10 mg IV NOW STA Stop: 10/28/19 23:49 Last Admin: 10/29/19 00:05 Dose: 10 mg Documented by: [id number] Ondansetron HCl (Zofran) 4 mg IV NOW STA Stop: 10/29/19 00:34 Last Admin: 10/29/19 00:40 Dose: 4 mg Documented by: [id number] Medical Decision Making Laboratory Data Result diagrams: 10/28/19 23:27 10/28/19 23:27 Lab Results 10/28/19 10/28/19 10/28/19 Range/Units 23:10 23:27 23:27 WBC 15.14 H (4.8-10.8) K/uL RBC 5.38 (4.2-5.4) M/uL Hgb 16.7 H (12.0-16.0) g/dL Hct 49.8 H (37-47) % MCV 92.6 (80-100) fL MCH 31.0 (25-34) pg MCHC 33.5 (32-36) g/dL RDW Std Deviation 49.1 H (36.4-46.3) fL RDW Coeff of Rory 14.6 H (11.5-14.5) % Plt Count 257 (130-400) K/uL MPV 10.0 (7.4-10.4) fL Immature Gran % (Auto) 0.4 % Neut % (Auto) 87.4 % Lymph % (Auto) 8.1 % [place] % (Auto) 4.0 % Eos % (Auto) 0.0 % Baso % (Auto) 0.1 % Immature Gran # (Auto) 0.06 H (0.00-0.02) K/uL Neut # (Auto) 13.24 H (1.4-6.5) K/uL Lymph # (Auto) 1.22 (1.2-3.4) K/uL [place] # (Auto) 0.60 H (0.11-0.59) K/uL Eos # (Auto) 0.00 (0-0.5) K/uL Baso # (Auto) 0.02 (0-0.2) K/uL Sodium (136-145) mmol/L Potassium (3.5-5.1) mmol/L Chloride (98-107) mmol/L Carbon Dioxide (21-32) mmol/L Anion Gap (3-11) BUN (7-18) mg/dl Creatinine (0.6-1.2) mg/dl Est Cr Clr Drug Dosing ml/min Est GFR ( Amer) Est GFR (Non-Af Amer) BUN/Creatinine Ratio (10-20) Glucose (70-99) mg/dl Lactate 3.1 H* (0.4-2.0) mmol/L Calcium (8.5-10.1) mg/dl Magnesium (1.8-2.4) mg/dl Total Bilirubin (0.2-1) mg/dl AST (15-37) U/L ALT (12-78) U/L Alkaline Phosphatase (45-117) U/L Troponin I (0-0.045) ng/ml Total Protein (6.4-8.2) gm/dl Albumin (3.4-5.0) gm/dl Globulin (2.5-4.0) gm/dl Albumin/Globulin Ratio (0.9-2) Lipase (73-393) U/L Urine Color Dark Yellow Urine Appearance Turbid A (Clear) Urine pH 5.0 (4.5-7.5) Ur Specific [place] 1.041 H (1.000-1.030) Urine Protein 2+ H (Negative) Urine Glucose (UA) Negative (Negative) Urine Ketones 3+ H (Negative) Urine Blood Negative (Negative) Urine Nitrite Negative (Negative) Urine Bilirubin Negative (Negative) Urine Urobilinogen Negative (Negative) Ur Leukocyte Esterase Negative (Negative) Urine WBC (Auto) 10-30 H (0-5) /hpf Urine RBC (Auto) 5-10 H (0-4) /hpf U Hyaline Cast (Auto) 1-5 (0-5) /lpf U Epithel Cells (Auto) >30 H (0-5) /lpf Urine Bacteria (Auto) 2+ H (Negative) Ur Renal Epithelial Cell Not Reportable WBC Casts 1-5 H (0) /lpf 10/28/19 Range/Units 23:27 WBC (4.8-10.8) K/uL RBC (4.2-5.4) M/uL Hgb (12.0-16.0) g/dL Hct (37-47) % MCV (80-100) fL MCH (25-34) pg MCHC (32-36) g/dL RDW Std Deviation (36.4-46.3) fL RDW Coeff of Rory (11.5-14.5) % Plt Count (130-400) K/uL MPV (7.4-10.4) fL Immature Gran % (Auto) % Neut % (Auto) % Lymph % (Auto) % [place] % (Auto) % Eos % (Auto) % Baso % (Auto) % Immature Gran # (Auto) (0.00-0.02) K/uL Neut # (Auto) (1.4-6.5) K/uL Lymph # (Auto) (1.2-3.4) K/uL [place] # (Auto) (0.11-0.59) K/uL Eos # (Auto) (0-0.5) K/uL Baso # (Auto) (0-0.2) K/uL Sodium 140 (136-145) mmol/L Potassium 4.0 (3.5-5.1) mmol/L Chloride 105 (98-107) mmol/L Carbon Dioxide 21 (21-32) mmol/L Anion Gap 14.0 H (3-11) BUN 17 (7-18) mg/dl Creatinine 1.19 (0.6-1.2) mg/dl Est Cr Clr Drug Dosing 82.3 ml/min Est GFR ( Amer) 58.3 Est GFR (Non-Af Amer) 50.3 BUN/Creatinine Ratio 14.4 (10-20) Glucose 160 H (70-99) mg/dl Lactate (0.4-2.0) mmol/L Calcium 9.5 (8.5-10.1) mg/dl Magnesium 1.8 (1.8-2.4) mg/dl Total Bilirubin 0.7 (0.2-1) mg/dl AST 8 L (15-37) U/L ALT 28 (12-78) U/L Alkaline Phosphatase 133 H (45-117) U/L Troponin I < 0.015 (0-0.045) ng/ml Total Protein 8.3 H (6.4-8.2) gm/dl Albumin 3.7 (3.4-5.0) gm/dl Globulin 4.6 H (2.5-4.0) gm/dl Albumin/Globulin Ratio 0.8 L (0.9-2) Lipase 83 (73-393) U/L Urine Color Urine Appearance (Clear) Urine pH (4.5-7.5) Ur Specific [place] (1.000-1.030) Urine Protein (Negative) Urine Glucose (UA) (Negative) Urine Ketones (Negative) Urine Blood (Negative) Urine Nitrite (Negative) Urine Bilirubin (Negative) Urine Urobilinogen (Negative) Ur Leukocyte Esterase (Negative) Urine WBC (Auto) (0-5) /hpf Urine RBC (Auto) (0-4) /hpf U Hyaline Cast (Auto) (0-5) /lpf U Epithel Cells (Auto) (0-5) /lpf Urine Bacteria (Auto) (Negative) Ur Renal Epithelial Cell WBC Casts (0) /lpf Imaging Data Radiologist's Impression: ADDENDUM - Added by Hermilo Minor MD on 10/29/2019 2:19 AM (-07:00) ADDENDUM: ADDITIONAL HISTORY: Reportedly, there was an outside CT examination performed earlier which reported approximately 4 cm supraumbilical ventral wall hernia. The patient has continued abdominal pain. ADDITIONAL FINDINGS/IMPRESSION: With reformatted imaging performed on home workstation (not provided), there is in retrospect, a 1.5 cm supraumbilical hernia identified containing a loop of small bowel, best appreciated on sagittal reformatted imaging. No identifiable inflammation, definite bowel wall thickening, fluid or proximal small bowel obstruction identified. This finding was discussed with the patient's treating provider at the time of telephone discussion with additional history provided. CT ABDOMEN & PELVIS With Contrast: Mild mucosal prominence of the predominantly decompressed colon is presumed re lated to underdistention. Subtle colitis is considered less likely. Scattered diverticulosis of the sigmoid colon without definitive findings to suggest diverticulitis. No evidence for bowel obstruction. No free intraperitoneal fluid or pneumoperitoneum. Status post cholecystectomy. The liver, pancreas, spleen, adrenal glands and kidneys demonstrate no significant abnormality or interval change from the examination 04/26/2015. Bladder is mildly distended without significant wall abnormalities or calcifications. Status post hysterectomy. The adnexa are stable in appearance from the previous exam. No acute osseous or significant overlying acute soft tissue abnormality, where visible secondary to patient body habitus. Radiologist: Hermilo Minor MD Study ready at 00:59 and initial results transmitted at 01:02 Communications: Clear Time Type Notes 10/29/19 02:[address] Cu[facility]ra ECG Data Additional Comments: sinus rhythm, rate of 62 bpm. QTc 479. No evidence of NE. MDM Narrative Patient was seen and evaluated as above in room B03. Review was performed of nursing notes and vital signs. I did review pertinent previous visits and patient history. After obtaining a thorough history and physical examination the above work up was performed. Patient presents to us today with epigastric abdominal discomfort and nausea. The patient was just at [facility] before coming here and therefore I did have our staff retrieve records from [facility]. Unfortunately, it did take some time to retrieve these records but once they were sent to us I was able to review them and it is important note that the patient underwent a CT scan which revealed a ventral abdominal wall supraumbilical hernia containing small bowel and has increased in size compared to previous. There was a relatively narrow mouth and there is potential for incarceration which certainly could cause the patient's discomfort and will note that she does have discomfort in that region. Patient was medicated with IV morphine, Zofran and was hydrated with fluids. I did elect to obtain a repeat CT scan here which initial report did not indicate any hernia and the patient was feeling much better after pain medication and even after it was felt that this should have worn off she still was feeling much better. For this reason it was felt that medical admission would be reasonable to further trend her elevated lactic acid and potential surgical consultation. In review of her labs: leukocytosis of 15.14 and hemoglobin of 16.7. There is no emergent metabolic disturbance. Troponin is negative. Urinalysis does reveal what is possibly a UTI versus contaminated sample. An EKG was also obtained given the patient's location of discomfort which revealed sinus rhythm, rate of 62 bpm. QTc 479. No evidence of NE. Chest x-ray per my interpretation reveals no free air or pneumonia. After discussing the case with the hospitalist, they did reach out to stat read and an addendum was added as there was evidence of a supraumbilical ventral hernia with a small loop of bowel. General surgery was consulted and the patient here in the emergency department. At this time no emergent surgical intervention needed. She will be admitted for further evaluation and management by the medical team. Please refer to further documentation regarding her stay. An order was placed for continuous cardiac monitoring. The monitor shows a rate of 80bpm with sinus rhythm. I attest that I have personally reviewed the patient medication list. I attest that I have reviewed the patient's blood pressure and it was found to be 117/84 on arrival. GCS: 15 In the evaluation and treatment of this patient, the following differential diagnoses were considered: NE, ASC, Dysrhythmia, Angina, Mediastinitis, GERD, Esophagitis, PE, Pneumonia, Bronchitis, Costochondritis, incarcerated hernia, rib Fracture, [place], among others. Impression & Plan Abdominal pain, acute, epigastric Discharge Plan Visit Data *Final* Discharge Date/Time: 10/29/19 04:02 Chief Complaint: Nausea Stated Complaint: NAUSEA - LOWER BACK PAIN - VOMITING ED Provider: Mustapha Lucero ED Midlevel Provider: Christopher Henry Discharge Problem: Abdominal pain, acute, epigastric Patient Disposition: Admitted As Inpatient Condition: Good Discharge Instructions Interventions: ED Discharge Assessment Last Done: 10/29/19 04:02
[2019-10-28 23:20] LABS: Appearance Urine Turbid (Clear); Bacteria Urine Automated 2+ (Negative); Blood Urine Negative (Negative); Color Urine Dark Yellow; Epithelial Cell Urine Auto >30 /lpf (0-5); Glucose Urine UA Negative (Negative); Ketones Urine 3+ (Negative); Leukocyte Esterase Urine Negative (Negative); Nitrite Urine Negative (Negative); Protein Urine 2+ (Negative); Specific Gravity Urine 1.041 (1.000-1.030); Urobilinogen Urine Negative (Negative)
[2019-10-28 23:27] LABS: Bilirubin Urine Negative (Negative); Ictotest Urine Negative (Negative)
[2019-10-28 23:36] LABS: Basophils # (auto) 0.02 K/uL (0-0.2); Basophils % (auto) 0.1 %; Hematocrit (blood only) 49.8 % (37-47); Hemoglobin 16.7 g/dL (12.0-16.0); Immature Granulocytes # (auto) 0.06 K/uL (0.00-0.02); Immature Granulocytes % (auto) 0.4 %; Lymphocytes # (auto) 1.22 K/uL (1.2-3.4); Lymphocytes % (auto) 8.1 %; Mean Corpuscular Hgb Conc 33.5 g/dL (32-36); Mean Corpuscular Volume 92.6 fL (80-100); Neutrophils # (auto) 13.24 K/uL (1.4-6.5); Neutrophils % (auto) 87.4 %; Platelet Count 257 K/uL (130-400); RDW Coefficient of Variation 14.6 % (11.5-14.5); RDW Standard Deviation 49.1 fL (36.4-46.3); Red Blood Count 5.38 M/uL (4.2-5.4); White Blood Count 15.14 K/uL (4.8-10.8)
[2019-10-28] MEDS ORDERED: MoRPHine SULFATE 10 MG/ML CARP/VIAL IV STA (23:48)
[2019-10-28 23:52] LABS: Alanine Aminotransferase 28 U/L (12-78); Albumin Level 3.7 gm/dl (3.4-5.0); Aspartate Aminotransferase 8 U/L (15-37); BUN Creatinine Ratio 14.4 (10-20); Blood Urea Nitrogen 17 mg/dl (7-18); Calcium 9.5 mg/dl (8.5-10.1); Carbon Dioxide 21 mmol/L (21-32); Chloride 105 mmol/L (98-107); Creatinine Clr Calc Pharmacy 82.3 ml/min; Est GFR (African American) 58.3; Est GFR (Non-African American) 50.3; Glucose 160 mg/dl (70-99); Lipase 83 U/L (73-393); Magnesium 1.8 mg/dl (1.8-2.4); Sodium 140 mmol/L (136-145)
[2019-10-28 23:58] LABS: Albumin Globulin Ratio 0.8 (0.9-2); Alkaline Phosphatase 133 U/L (45-117); Bilirubin,Total 0.7 mg/dl (0.2-1); Globulin 4.6 gm/dl (2.5-4.0); Total Protein 8.3 gm/dl (6.4-8.2); Troponin I < 0.015 ng/ml (0-0.045)
[2019-10-29] MEDS ORDERED: ONDANSETRON INJ 2 MG/ML 2 ML VIAL IV STA (00:33)
--- NOTE | 2019-10-29 00:39 | Emergency Department Note ---
ED Visit Note Patient was seen by our PA/RN NURSERY. I was involved in the patient's care and did evaluate the patient myself. I was involved in the care throughout the ER stay. The patient presents with epigastric abdominal pain. She does have a leukocytosis. She has been vomiting. Work-up from the outside hospital did suggest a ventral abdominal hernia. The patient will have repeat imaging. She will have her pain controlled and nausea controlled. She will be hydrated. She will be hospitalized. She may require surgical intervention depending upon her CT results. .
[2019-10-29] MEDS ORDERED: SODIUM CHLORIDE 0.9% 1000ML 1,000 ML IV SCH (00:45)
[2019-10-29] MEDS ORDERED: OPTIRAY 320 125ml IV PRN (00:56)
--- NOTE | 2019-10-29 03:04 | Surgery Consultation ---
Date of Consultation October 29, 2019 Assessment & Plan (1) Abdominal pain: -currently abdominal pain has completely resolved -she has received morphine, but most recent dose was nearly 3 hours ago -it is possible she has a ventral hernia with bowel or fat that has reduced as her exam at this time is entirely benign -recommend trending her labs (CBC and lactate) and following clinically for the present time Supervising Physician Co-Signing Physician Notes The patient is resting comfortably without any complaints abdominal exam shows no acute findings no tenderness no masses she points to an area of some discomf ort in the upper abdomen just left of the midline subcostally I cannot feel any discrete pathology there but is hard to evaluate the patient who is morbidly obese The CAT scan was reviewed In summary at this time no acute surgical problems will follow closely History of Present Illness Attending Physician: 59 year old female developed abdominal pain yesterday which was non-radiating and located in epigastric area. She was seen in [place] [facility] where she had a CT scan scan that she sates showed diverticular disease. She w as discharged home and had something to eat and promptly developed N/V so she returned to [place] ED and left before any treatment because she states she did not get along with the staff. Her pain persisted so she came to the [facility] ED. In the [facility] ED she had a WBC of 15 and a lactic acid level of 3.1. A repeat CT scan of abdomen did not show any evidence of obstruction or free air. There was concern for the possibility of a ventral hernia with a small loop of fat or bowel. I was asked to see her y the admitting medical team. At the time of my exam she was entirely pain free. Allergies Allergy/AdvReac Type Severity Reaction Status Date / Time No Known Allergies Allergy ` Unverified 10/28/19 22:54 Home Medications Home Medications Medication Instructions Recorded Confirmed Type atorvastatin 20 mg PO DAILY 10/28/19 10/28/19 History ciprofloxacin HCl [Cipro] 500 mg PO BID 10/28/19 10/28/19 History cyclobenzaprine 10 mg PO BID PRN 10/28/19 10/28/19 History diazepam 5 mg PO Q12 PRN 10/28/19 10/28/19 History duloxetine 30 mg PO DAILY 10/28/19 10/28/19 History irbesartan 150 mg PO DAILY 10/28/19 10/28/19 History triamterene-hydrochlorothiazid 1 tab PO DAILY 10/28/19 10/28/19 History Patient History Social History Preferred Language: Hong [place]er Communication Ability: Effective Integration Solution Architect Required: No Beliefs That Will Affect Care: None Current Living Situation: Spouse and Family Other Information That Helps Us Care for You: No Feels Safe at Home: Yes Safety Concerns: Feels Safe At This Time Smoking Status: Current every day smoker Tobacco Type: cigarettes ; Cigarettes Per Day: 10 ; Do You Dip or Chew Tobacco: No ; Second Hand Exposure: Yes ; Tobacco Cessation Education Requested by Patient: No Hx Alcohol Use: No Hx Substance Use: Yes substance use type: marijuana Substance Use Type Other:: medical marijuana use here and there Last Used Substance: Hours (ago) Review of Systems Constitutional: no fever and no sweats Eyes: no diplopia Ear, Nose, Mouth, Throat: no ear pain Respiratory: no cough Cardiovascular: no chest pain Gastrointestinal: + abdominal pain, + nausea, + vomiting and + diarrhea/loose stools; no coffee ground emesis and no melena Genitourinary: no dysuria Musculoskeletal: no back pain Integumentary: no rash Neurologic: no localized weakness Physical Exam Constitutional: well developed, well nourished and + morbidly obese; no acute distress Eyes: no conjunctival abnormality Respiratory: normal respiratory effort; no respiratory distress and no labored breathing BS decreased at bases Cardiovascular: Rate/Rhythm: regular rate and regular rhythm Vessels: radial pulses present Gastrointestinal (Abdomen): BS are present; abdomen is sift and non-distended; no palpable hernias noted; no rebound tenderness or guarding; no pain in any area with light or deep palpation Musculoskeletal: no calf tenderness Skin: no rashes, warm and dry Neurologic: moves all extremities Psychiatric: A+Ox3, euthymic affect Results & Data Vital Signs (Past 12 Hours) Vital Signs Temp Pulse Pulse Resp BP BP BP 10/29/19 02:30 92 H 18 123/78 10/29/19 02:15 80 17 108/58 L 10/29/19 02:12 91 H 15 99/56 L 10/29/19 02:00 79 18 99/56 L 10/29/19 01:45 83 19 136/96 10/29/19 01:30 81 18 131/72 10/29/19 01:16 78 16 107/61 10/29/19 01:00 101/70 10/29/19 00:58 73 18 92/53 L 10/29/19 00:30 87 20 140/76 10/29/19 00:21 18 10/29/19 00:19 10/29/19 00:05 82 24 138/80 10/28/19 23:35 60 18 134/98 10/28/19 22:15 36.5 C 86 22 117/84 Pulse Ox 10/29/19 02:30 94 10/29/19 02:15 94 10/29/19 02:12 93 10/29/19 02:00 94 10/29/19 01:45 96 10/29/19 01:30 94 10/29/19 01:16 95 10/29/19 01:00 10/29/19 00:58 96 10/29/19 00:30 97 10/29/19 00:21 93 10/29/19 00:19 88 L 10/29/19 00:05 98 10/28/19 23:35 96 10/28/19 22:15 98 PG Care Time/CCT Total # of Minutes Spent Total Time Spent with Patient: Total time spent is greater than 50% in coor dination of care (as documented) at patient's floor/unit and/or counseling patient: Coding Level of Care Code 25255 Inpt Consult Level 4 Diagnoses Abdominal pain R10.9
--- NOTE | 2019-10-29 03:25 | History & Physical Report ---
Date of Service October 29, 2019 Assessment & Plan Admission and Anticipated Discharge Date Admission Date: 59-year-old female past medical history significant for hypertension, hyperlipidemia, appendectomy, cholecystectomy, hysterectomy admitted for abdominal pain secondary to diverticulitis versus ventral hernia versus gastritis. Abdominal pain: Patient is without abdominal pain, nausea, vomiting at this time. We will repeat lactate. CTAP findings do not Splane severity of patient's symptoms on arrival, however diverticulitis and pain secondary to inguinal hernia cannot be ruled out. Surgery will continue to follow. N.p.o. for bowel rest, NSS@150 cc/hr Cipro/Flagyl for diverticulitis Famotidine 20 mg IV now Morphine 4 mg IV every 4 hours as needed moderate pain. Zofran PRN nausea Hold all other home meds at this time given n.p.o. Code Status: FULL CODE FEN/GI: NPO, NSS @ 150cc/hr DVT ppx: SCDs, ad bharti on demand Dispo: med/surg History of Present Illness Chief Complaint: abdominal pain Primary Care Provider: Betina Kirby 59-year-old female past medical history significant for hypertension, hyperlipidemia, appendectomy, cholecystectomy, hysterectomy presents for abdominal pain x2 days with associated nausea and vomiting. The pain is described as intermittently epigastric versus right lower quadrant, crampy, 10 out of 10, not seemingly associated with food. Was previously evaluated yesterday at [place] [facility], there had a CT AP done which showed a 4 x 1 cm ventral hernia with small bowel within with a "tight neck", with potential for incarceration. Also some questionable diverticulitis versus diverticulosis. Was given Cipro, Flagyl, Toradol prescriptions to fruit or nut picker. Later that day, she had not picked up her prescriptions but had a hot dog for lunch and started vomiting and having abdominal pain again. Was seen again at [place] [facility] but left AMA "because 1 of the nurses said something rude to me". Then promptly came to our emergency room. In our ED CTAP showed 1 x 1 cm non-incarcerated ventral hernia, CBC with leukocytosis and lactate to 3.1. Surgery was consulted, given morphine 10 mg IV and Zofran with resolution of her pain and nausea. Surgery noted an area of possible pneumatosis on CTAP, but no exam findings suggestive of incarcerated hernia. On my exam patient is without pain or nausea, denies any fevers chills constipation diarrhea chest pain shortness of breath. Does not correlate the pain with food, has been eating a lot of foods on the grill such as steaks and hamburgers, but no spicy or tomato based foods. Has a history of intermittent reflux but does not take any daily medications, takes Tums with relief. Allergies Allergy/AdvReac Type Severity Reaction Status Date / Time No Known Allergies Allergy ` Unverified 10/28/19 22:54 Home Medications Home Medications Medication Instructions Recorded Confirmed Type atorvastatin 20 mg PO DAILY 10/28/19 10/28/19 History ciprofloxacin HCl [Cipro] 500 mg PO BID 10/28/19 10/28/19 History cyclobenzaprine 10 mg PO BID PRN 10/28/19 10/28/19 History diazepam 5 mg PO Q12 PRN 10/28/19 10/28/19 History duloxetine 30 mg PO DAILY 10/28/19 10/28/19 History irbesartan 150 mg PO DAILY 10/28/19 10/28/19 History triamterene-hydrochlorothiazid 1 tab PO DAILY 10/28/19 10/28/19 History Past Med/Surg History Medical History (Updated 10/29/19 @ 16:50 by Julisa Magallon MD) History of ovarian cancer Hx of ovarian cancer Surgical History (Updated 10/29/19 @ 16:50 by Julisa Magallon MD) History of hysterectomy Hx of cholecystectomy Hx of hernia repair Social History Preferred Language: [place] Communication Ability: Effective Manager Change Required: No Beliefs That Will Affect Care: None Current Living Situation: Spouse and Family Other Information That Helps Us Care for You: No Feels Safe at Home: Yes Safety Concerns: Feels Safe At This Time Smoking Status: Current every day smoker Tobacco Type: cigarettes ; Cigarettes Per Day: 10 ; Do You Dip or Chew Tobacco: No ; Second Hand Exposure: Yes ; Tobacco Cessation Education Requested by Patient: No Hx Alcohol Use: No Hx Substance Use: Yes substance use type: marijuana Substance Use Type Other:: medical marijuana use here and there Last Used Substance: Hours (ago) Review of Systems Review of Systems: All systems reviewed & are unremarkable except as noted in HPI & below Review of systems per my note is based on my interview alone. See HPI for symptom history. Constitutional: no fever, no chills and no malaise Respiratory: no cough and no dyspnea Cardiovascular: no chest pain, no palpitations and no edema Gastrointestinal: no abdominal pain, no constipation and no diarrhea/loose stools Genitourinary: no dysuria and no hematuria Physical Exam Constitutional: well developed and + morbidly obese Eyes: PERRL, conjunctivae normal, anicteric sclerae ENMT: external ear and nose normal, oropharynx normal Neck: normal visual inspection Respiratory: normal respiratory effort, lungs clear to auscultation Cardiovascular: RRR, no murmur, no edema Gastrointestinal (Abdomen): normal bowel sounds, soft, nontender, no hepatosplenomegaly Musculoskeletal: no cyanosis or clubbing, extremities motor strength 5/5 Skin: no rashes, warm and dry Neurologic: AAOx3, normal speech. PERRLA, EOMI, no nystagmus. Normal visual acuity bilaterally. Bilateral UE, LE, and face without sensory or motor deficits. DTRs normal. II- XII intact bilaterally. No tremor. Psychiatric: A+Ox3, euthymic affect Results & Data Results & Data ([facility]) Vital Signs (Past 12 Hours) Vital Signs Temp Pulse Pulse Resp BP BP BP 10/29/19 02:30 92 H 18 123/78 10/29/19 02:15 80 17 108/58 L 10/29/19 02:12 91 H 15 99/56 L 10/29/19 02:00 79 18 99/56 L 10/29/19 01:45 83 19 136/96 10/29/19 01:30 81 18 131/72 10/29/19 01:16 78 16 107/61 10/29/19 01:00 101/70 10/29/19 00:58 73 18 92/53 L 10/29/19 00:30 87 20 140/76 10/29/19 00:21 18 10/29/19 00:19 10/29/19 00:05 82 24 138/80 10/28/19 23:35 60 18 134/98 10/28/19 22:15 36.5 C 86 22 117/84 Pulse Ox 10/29/19 02:30 94 10/29/19 02:15 94 10/29/19 02:12 93 06/18/20 02:00 94 10/29/19 01:45 96 10/29/19 01:30 94 10/29/19 01:16 95 10/29/19 01:00 10/29/19 00:58 96 10/29/19 00:30 97 10/29/19 00:21 93 10/29/19 00:19 88 L 10/29/19 00:05 98 10/28/19 23:35 96 10/28/19 22:15 98 Code Status & VTE Plan VTE Prophylaxis Plan VTE Prophylaxis will be ordered: Yes Supervising Physician Co-Signing Physician Notes Attending addendum: I have physically seen this patient, have supervised the medical residents activities, and agree with the H&P unless as otherwise noted. Assessment and Plan: Intractable abdominal pain- Patient did get relief with morphine 10 mg IV in the ED. History of surgical repair of incarcerated hernia. Spontaneous resolution of current incarcerated hernias noted per CT from [facility] compared to [facility]. Famotidine 20 mg IV every 12 hours. Morphine sulfate 4 mg IV every 4 hours as needed severe pain. Assessed by surgery in the ED, and will follow during hospital stay. Zofran 4 mg IV every 6 hours as needed Cipro 400 mg IV every 12 hours Metronidazole 500 mg IV every 8 hours. Remaining orders and notations as noted. Resident Activity Tracking Resident Involvement: Resident Care Provided Care Provided: Adult Hospital Medicine
[2019-10-29] MEDS ORDERED: FAMOTIDINE 20MG/5ML IV PUSH IV STA (03:53)
[2019-10-29] MEDS ORDERED: MoRPHine SULFATE 4 MG/ML 1 ML CARP\\VIAL IV PRN (04:34)
[2019-10-29] MEDS ORDERED: ONDANSETRON INJ 2 MG/ML 2 ML VIAL IV PRN (04:34)
[2019-10-29] MEDS ORDERED: metroNIDAZOLE 500 MG/100 ML BAG IV SCH (05:00)
[2019-10-29] MEDS ORDERED: CIPROFLOXACIN / D5W 400 MG/200 ML BAG IV SCH (06:00)
[2019-10-29] MEDS: SODIUM CHLORIDE 0.9% 1000ML 1,000 ML IV SCH ×2 (06:45→11:52)
--- NOTE | 2019-10-29 07:01 | CT Scan Report ---
CT OF THE ABDOMEN AND PELVIS WITH CONTRAST CLINICAL HISTORY: Epigastric abdominal pain. COMPARISON STUDY: CT of the abdomen and pelvis January 25, 2015. TECHNIQUE: Following IV administration of 117 mL of Optiray-320, axial images of the abdomen and pelv is were obtained from the lung bases to the proximal femurs. Images were reviewed in the axial, sagit sacha, and coronal planes. IV contrast was administered without complication. Automated exposure contr ol was utilized for the study. A dose lowering technique was utilized adhering to the principles of ALARA. CT DOSE: 2136.62 mGy.cm FINDINGS: Lung bases are unremarkable. No pneumatosis, free air or portal venous gas is present. Ther e is fatty infiltration of the liver. Spleen, adrenal glands, kidneys and pancreas are unremarkable. There is no biliary ductal dilatation status post cholecystectomy. There is no hydronephrosis or hydr oureter. There is no evidence for a bowel obstruction. A small supraumbilical hernia contains a porti on of a loop of small bowel. There is no resultant bowel obstruction. There is laxity of the anterior abdominal wall. No bowel wall thickening is identified. The appendix is not visualized. There is col onic diverticulosis without evidence for acute diverticulitis. Note is made of a round 3.6 cm hypoden se abnormality posterior to the right external iliac vessels on axial image [id number]. This measures ab ove water attenuation. This is similar to CT of April 26, 2015. There is also a low-attenuation pa rtially peripherally calcified 2.6 cm left iliac round hypodense abnormality which is unchanged since prior CT. No suspicious osseous lesions are present. IMPRESSION: 1. Supraumbilical hernia which contains a portion of a loop of small bowel without resultant bowel ob struction. 2. Rounded bilateral iliac hypodense abnormalities within the pelvis which are similar to CT of Decem 2014. Given stability, these are probably benign and could reflect lymphoceles. Enlarged lymp h nodes remain within the differential but are considered less likely. 3. Colonic diverticulosis without evidence for acute diverticulitis. 4. Fatty infiltration of the liver. ACT 112: Negative or not required by law. Electronically signed by: Iain Ferris M.D. 10/29/2019 7:00 AM
--- NOTE | 2019-10-29 07:18 | XRay Report ---
SINGLE VIEW CHEST CLINICAL HISTORY: Epigastric abdominal pain. FINDINGS: 2 AP, portable, upright chest radiographs are compared to chest x-ray and chest CT dated 01/13/2017. The examination is degraded by portable technique and patient rotation. The cardiomediastin al silhouette is unremarkable. Chronic interstitial thickening is similar to previous. The lungs and pleural spaces are clear. No pneumothorax is seen. The skeletal structures are osteopenic. The bony t horax is grossly intact. Surgical anchors are noted in the right humeral head. IMPRESSION: No active disease in the chest. ACT 112: Negative or not required by law. Electronically signed by: Mustapha De Leon M.D. 10/29/2019 7:17 AM
[2019-10-29 10:26] LABS: Basophils # (auto) 0.02 K/uL (0-0.2); Basophils % (auto) 0.2 %; Hematocrit (blood only) 45.8 % (37-47); Hemoglobin 14.9 g/dL (12.0-16.0); Immature Granulocytes # (auto) 0.02 K/uL (0.00-0.02); Immature Granulocytes % (auto) 0.2 %; Lymphocytes # (auto) 1.91 K/uL (1.2-3.4); Lymphocytes % (auto) 17.5 %; Mean Corpuscular Hemoglobin 30.5 pg (25-34); Mean Corpuscular Hgb Conc 32.5 g/dL (32-36); Mean Corpuscular Volume 93.7 fL (80-100); Mean Platelet Volume 10.1 fL (7.4-10.4); Monocytes # (auto) 0.99 K/uL (0.11-0.59); Monocytes % (auto) 9.1 %; Neutrophils # (auto) 7.98 K/uL (1.4-6.5); Platelet Count 232 K/uL (130-400); RDW Standard Deviation 51.4 fL (36.4-46.3); Red Blood Count 4.89 M/uL (4.2-5.4); White Blood Count 10.92 K/uL (4.8-10.8)
[2019-10-29 10:30] LABS: Albumin Level 3.1 gm/dl (3.4-5.0); BUN Creatinine Ratio 15.9 (10-20); Calcium 8.6 mg/dl (8.5-10.1); Creatinine Clr Calc Pharmacy 96.8 ml/min; Est GFR (African American) 67.8; Est GFR (Non-African American) 58.5; Magnesium 2.2 mg/dl (1.8-2.4); Potassium 4.1 mmol/L (3.5-5.1)
[2019-10-29 10:33] LABS: Albumin Globulin Ratio 0.8 (0.9-2); Bilirubin,Total 0.3 mg/dl (0.2-1); Globulin 4.1 gm/dl (2.5-4.0); Total Protein 7.2 gm/dl (6.4-8.2)
--- NOTE | 2019-10-29 10:44 | Surgery Progress Note ---
Date of Service October 29, 2019 Assessment & Plan (1) Abdominal pain: Patient currently denies any abdominal pain Lactate 1.3 today and WBC down to 10.4 CT scan radiology read shows a supraumbilical hernia without evidence of bowel obstruction as well as some diverticulosis Okay to advance to clears and advance slowly as tolerates Will continue to follow, no plans for surgical intervention Supervising Physician Co-Signing Physician Notes The patient is resting comfortably without any complaints abdominal exam shows no acute findings no tenderness no masses she points to an area of some discomfort in the upper abdomen just left of the midline subcostally I cannot feel any discrete pathology there but is hard to evaluate the patient who is morbidly obese The CAT scan was reviewed In summary at this time no acute surgical problems will follow closely Subjective Patient denies any abdominal pain. She states she feels a lot better. Is passing flatus. Physical Exam Physical Exam: awake/alert Gastrointestinal (Abdomen): Percussion/Palpation: abdomen soft Results & Data Vital Signs (Past 12 Hours) Vital Signs Temp Pulse Pulse Resp BP BP BP 10/29/19 06:56 36.8 C 80 16 95/61 L 10/29/19 04:15 36.6 C 61 18 129/77 10/29/19 04:02 66 16 123/91 10/29/19 02:45 82 16 121/90 10/29/19 02:30 92 H 18 123/78 10/29/19 02:15 80 17 108/58 L 10/29/19 02:12 91 H 15 99/56 L 10/29/19 02:00 79 18 99/56 L 10/29/19 01:45 83 19 136/96 10/29/19 01:30 81 18 131/72 10/29/19 01:16 78 16 107/61 10/29/19 01:00 101/70 10/29/19 00:58 73 18 92/53 L 10/29/19 00:30 87 20 140/76 10/29/19 00:21 18 10/29/19 00:19 10/29/19 00:05 82 24 138/80 10/28/19 23:35 60 18 134/98 Pulse Ox 10/29/19 06:56 92 10/29/19 04:15 95 10/29/19 04:02 99 10/29/19 02:45 96 10/29/19 02:30 94 10/29/19 02:15 94 10/29/19 02:12 93 10/29/19 02:00 94 10/29/19 01:45 96 10/29/19 01:30 94 10/29/19 01:16 95 10/29/19 01:00 10/29/19 00:58 96 10/29/19 00:30 97 10/29/19 00:21 93 10/29/19 00:19 88 L 10/29/19 00:05 98 10/28/19 23:35 96 PG Care Time/CCT Total # of Minutes Spent Total Time Spent with Patient: Total time spent is greater than 50% in coordination of care (as documented) at patient's floor/unit and/or counseling patient: Coding Level of Care Code 50739 Subseq Hosp Care Lvl 1 Diagnoses Abdominal pain R10.9
--- NOTE | 2019-10-29 16:50 | Hospitalist Progress Note ---
Date of Service October 29, 2019 Assessment & Plan (1) Abdominal pain: This patient is a 59-year-old female past medical history significant for hypertension, hyperlipidemia, appendectomy, cholecystectomy, hysterectomy, and ovarian cancer, admitted for abdominal pain Abdominal pain: She has had both right lower back and right groin pain which led to nausea and some epigastric abdominal pain prior to admission. The epigastric abdominal pain is completely resolved. She does have a supraumbi lical hernia which is reducible and does contain a small bowel loop on CT abdomen/pelvis, but no obstruction. She does not have diverticulitis and antibiotics will be stopped Currently, she is only having what seems like musculoskeletal pain in the right groin and right lower back. She has not had any recent heavy lifting. There is no evidence of kidney stone or inguinal hernia on examination or imaging. She is tolerating a clear liquids diet at this time. Lactate is back to normal and may have been from previous vomiting and abdominal pain? Appreciate general surgery consultation-no surgical intervention at this time -We will advance diet to full liquids -Will treat with topical Voltaren gel and heating pad to the right lower back and right groin -Okay to DC IV fluids as is tolerating p.o. -Continue morphine as needed for pain (2) Right groin pain: As noted above (3) Lower back pain: As noted above (4) History of ovarian cancer: Has a history of ovarian cancer with FATUMA and BSO Has 2 hypodense lesions thought to be either lymphoceles or lymph nodes which are unchanged since 2015 Unknown certain significance of this? Follow-up as an outpatient (5) HTN (hypertension), benign: Blood pressures here are well controlled despite holding her home p.o. meds -Continue to hold home irbesartan and Dyazide (6) Hyperlipidemia: -Holding home atorvastatin (7) Depression: Is taking p.o., will restart home duloxetine (8) DVT prophylaxis: SCDs Disposition-continued stay Improving Admission and Anticipated Discharge Date Admission Date: October 29, 2019 Subjective Patient feels well as long as she lays still. However, as soon as she tries to sit up or rotate on her side in the bed, she has immediate severe pains in the right lower back and in the right groin region which are spasming in nature. She denies any blood in the urine or difficulty urinating. She has not had a bowel movement since last night and has not passed flatus today. She is tolerating a clear liquids diet without difficulty. Denies nausea or vomiting. She has no epigastric or periumbilical abdominal pain like she did before. She reports that when the pain in her right lower back and right groin are severe like this, that is what makes her nauseated. Afebrile. Review of Systems Review of Systems: All systems reviewed & are unremarkable except as noted in HPI & below Physical Exam Constitutional: WD/WN, vitals as above + morbidly obese Eyes: + anicteric sclerae ENMT: external ear and nose normal, oropharynx normal Neck: trachea midline, no thyromegaly Respiratory: normal respiratory effort, lungs clear to auscultation Cardiovascular: RRR, no murmur, no edema Chest (Breasts): Chest: normal inspection of chest Gastrointestinal (Abdomen): Inspection/Auscultation: normal bowel sounds; + abdomen abnormal to inspection (Incisional scars) and abdomen not distended Percussion/Palpation: abdomen soft; abdomen nontender, no guarding and abdomen not rigid No tenderness to palpation in the right lower quadrant or right inguinal region, morbidly obese and difficult exam but no inguinal or femoral hernia noted. Positive tenderness to palpation over the right lower back in the lumbar paraspinous muscles Musculoskeletal: Extremities: extremities normal to inspection; no cyanosis and no clubbing Skin: no rashes, warm and dry Neurologic: moves all extremities and awake; no focal motor deficits Psychiatric: A+Ox3, euthymic affect Lymphatic: no lymphedema Results & Data Results & Data ([facility]) Vital Signs (Past 12 Hours) Vital Signs Temp Pulse Pulse Resp BP Pulse Ox 10/29/19 14:50 36.9 C 69 17 110/69 98 10/29/19 06:56 36.8 C 80 16 95/61 L 92 Laboratory Results Labs reviewed, WBC count down to 10 BMP within normal limits, lactate normal at 1.8 Urine culture pending Diagnostic Findings I reviewed the clinical case with 1 of the on-call radiologist, Dr. myers, on the phone and let him know about her right lower quadrant pain and right lower back pain. He confirms that there is no kidney stones, no inguinal hernia noted on imaging from previous. There is no obstruction. PG Care Time/CCT Total # of Minutes Spent Total Time Spent with Patient: Total time spent is greater than 50% in coordination of care (as documented) at patient's floor/unit and/or counseling patient: Coding Level of Care Code 01786 Subseq Hosp Care Lvl 3 Diagnoses Abdominal pain R10.9 Right groin pain R10.31 Lower back pain M54.5 History of ovarian cancer Z85.43 HTN (hypertension), benign I10 Hyperlipidemia E78.5 Depression F32.9 DVT prophylaxis Z29.9
--- NOTE | 2019-10-29 17:19 | Electrocardiogram Report ---
Test Reason : Blood Pressure : / mmHG Vent. Rate : 062 BPM Atrial Rate : 062 BPM P-R Int : 156 ms QRS Dur : 072 ms QT Int : 472 ms P-R-T Axes : 053 022 021 degrees QTc Int : 479 ms Poor data quality, interpretation may be adversely affected Sinus rhythm with Premature supraventricular complexes Low voltage QRS Abnormal ECG When compared with ECG of 03-NOV-2016 19:02, Premature supraventricular complexes are now Present Vent. rate has decreased BY 32 BPM Confirmed by Fran Gomez ([id number]) on 10/29/2019 5:18:46 PM Referred By: REFERRED SELF Confirmed By:Jeff Gomez
[2019-10-29] MEDS: DICLOFENAC SOD 1% GEL 100 GM TUBE EXT SCH ×2 (18:03→20:39)
--- NOTE | 2019-10-30 01:17 | Billing Data ---
Date of Service October 30, 2019 Coding Level of Care Code 99898 Initial Inpt Care Lvl 2
[2019-10-30] MEDS: DICLOFENAC SOD 1% GEL 100 GM TUBE EXT SCH ×3 (09:20→16:49)
[2019-10-30] MEDS ORDERED: DULOXETINE HCL 30 MG CAP PO SCH (09:45)
[2019-10-30] MEDS ORDERED: ATORVASTATIN 20 MG TAB PO SCH (09:45)
[2019-10-30 09:56] LABS: Basophils # (auto) 0.04 K/uL (0-0.2); Basophils % (auto) 0.4 %; Eosinophils # (auto) 0.07 K/uL (0-0.5); Eosinophils % (auto) 0.8 %; Hematocrit (blood only) 47.5 % (37-47); Hemoglobin 15.3 g/dL (12.0-16.0); Immature Granulocytes # (auto) 0.03 K/uL (0.00-0.02); Immature Granulocytes % (auto) 0.3 %; Lymphocytes # (auto) 1.66 K/uL (1.2-3.4); Lymphocytes % (auto) 17.8 %; Mean Corpuscular Hemoglobin 30.8 pg (25-34); Mean Corpuscular Hgb Conc 32.2 g/dL (32-36); Mean Corpuscular Volume 95.6 fL (80-100); Monocytes # (auto) 0.63 K/uL (0.11-0.59); Monocytes % (auto) 6.8 %; Neutrophils # (auto) 6.89 K/uL (1.4-6.5); Neutrophils % (auto) 73.9 %; Platelet Count 216 K/uL (130-400); RDW Coefficient of Variation 15.2 % (11.5-14.5); RDW Standard Deviation 53.3 fL (36.4-46.3); Red Blood Count 4.97 M/uL (4.2-5.4); White Blood Count 9.32 K/uL (4.8-10.8)
[2019-10-30] MEDS ORDERED: CYCLOBENZAPRINE HCL 10 MG TAB PO PRN (10:17)
[2019-10-30 10:23] LABS: BUN Creatinine Ratio 13.6 (10-20); Calcium 8.8 mg/dl (8.5-10.1); Creatinine Clr Calc Pharmacy 103.7 ml/min; Est GFR (African American) 73.7; Est GFR (Non-African American) 63.6
[2019-10-30] MEDS ORDERED: OXYCODONE/ACETAMINOPHEN 5mg/325mg TAB PO PRN (14:49)
[2019-10-30] MEDS ORDERED: predniSONE 20 MG TAB PO SCH (15:30)
--- NOTE | 2019-10-30 18:54 | Discharge Summary ---
Date of Service October 30, 2019 Admission HPI Per Admitting Provider 59-year-old female past medical history significant for hypertension, hyperlipidemia, appendectomy, cholecystectomy, hysterectomy presents for abdominal pain x2 days with associated nausea and vomiting. The pain is desc ribed as intermittently epigastric versus right lower quadrant, crampy, 10 out of 10, not seemingly associated with food. Was previously evaluated yesterday at [place] [facility], there had a CT AP done which showed a 4 x 1 cm ventral hernia with small bowel within with a "tight neck", with potential for incarceration. Also some questionable diverticulitis versus diverticulosis. Was given Cipro, Flagyl, Toradol prescriptions to burr picker. Later that day, she had not picked up her prescriptions but had a hot dog for lunch and started vomiting and having abdominal pain again. Was seen again at [place] [facility] but left AMA "because 1 of the nurses said something rude to me". Then promptly came to our emergency room. In our ED CTAP showed 1 x 1 cm non-incarcerated ventral hernia, CBC with leukocytosis and lactate to 3.1. Surgery was consulted, given morphine 10 mg IV and Zofran with resolution of her pain and nausea. Surgery noted an area of possible pneumatosis on CTAP, but no exam findings suggestive of incarcerated hernia. On my exam patient is without pain or nausea, denies any fevers chills constipation diarrhea chest pain shortness of breath. Does not correlate the pain with food, has been eating a lot of foods on the grill such as steaks and hamburgers, but no spicy or tomato based foods. Has a history of intermittent reflux but does not take any daily medications, takes Tums with relief. Principal Diagnosis Abdominal pain, right groin pain, right lower back pain Discharge Exam Constitutional WD/WN, vitals as above + morbidly obese Eyes + anicteric sclerae ENMT external ear and nose normal, oropharynx normal Neck trachea midline, no thyromegaly Respiratory normal respiratory effort, lungs clear to auscultation Cardiovascular RRR, no murmur, no edema Chest (Breasts) Chest: normal inspection of chest Gastrointestinal (Abdomen) Inspection/Auscultation: normal bowel sounds; + abdomen abnormal to inspection (Incisional scars) and abdomen not distended Percussion/Palpation: abdomen soft; abdomen nontender, no guarding and abdomen not rigid Musculoskeletal Extremities: extremities normal to inspection; no cyanosis and no clubbing Positive exquisite tenderness to palpation over the right greater trochanter Skin no rashes, warm and dry Neurologic moves all extremities and awake; no focal motor deficits Psychiatric A+Ox3, euthymic affect Lymphatic no lymphedema Discharge Data Allergies Allergy/AdvReac Type Severity Reaction Status Date / Time No Known Allergies Allergy ` Unverified 11/11/19 04:10 Consultations 10/29/19 02:02 ED Decision to Admit Stat 10/29/19 02:49 Consult General Surgery Stat Ordered Studies 10/29/19 00:31 CT abd pelvis IV con only Urgent Hip x-ray Chest x-ray Hospital Course (1) Abdominal pain: This patient is a 59-year-old female past medical history significant for hypertension, hyperlipidemia, appendectomy, cholecystectomy, hysterectomy, and ovarian cancer, admitted for abdominal pain Abdominal pain: She has had both right lower back and right groin pain which led to nausea and some epigastric abdominal pain prior to admission. The epigastric abdominal pain is completely resolved. She does have a supraumbilical hernia which is reducible and does contain a small bowel loop on CT abdomen/pelvis, but no obstruction. She does not have diverticulitis and antibiotics will be stopped Currently, she is only having what seems like musculoskeletal pain in the right groin and right lower back as well as the right greater trochanter which seems consistent with trochanteric bursitis. She has not had any recent heavy lifting. There is no evidence of kidney stone or inguinal hernia on examination or imaging. She is tolerating a regular diet Lactate is back to normal and may have been from previous vomiting and abdominal pain? Appreciate general surgery consultation-no surgical intervention at this time -Improved from previous -Will treat with topical Voltaren gel and heating pad to the right lower back and right groin and greater trochanter Stable for discharge to home (2) Right groin pain: As noted above (3) Lower back pain: As noted above (4) History of ovarian cancer: Has a history of ovarian cancer with FATUMA and BSO Has 2 hypodense lesions thought to be either lymphoceles or lymph nodes which are unchanged since 2015 Unknown certain significance of this? Follow-up as an outpatient (5) HTN (hypertension), benign: Blood pressures here are well controlled despite holding her home p.o. meds -Okay to restart home irbesartan and Dyazide (6) Hyperlipidemia: -Continue atorvastatin (7) Depression: Continue duloxetine (8) DVT prophylaxis: SCDs Disposition-stable for discharge Total Time Total Time Spent Total Time Spent (In Minutes): Greater than 30 minutes Total Time Includes: Examination of the Patient, Discharge Planning and Medication Reconciliation Discharge Plan Discharge Items Patient Disposition: Home - Self-Care Reason For Visit: abdominal pain, nausea Discharge Diagnosis: Right trochanteric bursitis and right lower back pain Condition on Discharge: Fair Activity: As commented below Lifting: No more than 5 pounds Bathing: No limitations Exercise/Sports: Gradually increase as tolerated Driving/Machine Use: No driving until pain is improved Weightbearing: Full weightbearing Non-emergency contact: Primary Care Provider Call non-emergency contact if: you have any medication questions, your symptoms worsen, your pain is not controlled, your pain is worsening, your pain is unusual for you and your pain is concerning for you Follow-up/Referrals: Usha Arreguin DO [Primary Care Provider] - (Please follow up within 1-2 weeks. ) Diet: Regular Addtl Attending Provider Instructions: You were admitted with abdominal pain, right hip pain, and nausea and vomiting. There were no significant abnormalities on the CT scan of your abdomen and pelvis. You do not have any infection and you do not have an obstruction of your bowels. The pain in your right hip is likely secondary to trochanteric bursitis. You can continue the topical Voltaren gel 4 times a day applied at the site of pain and take the short course of prednisone for the next 5 days. You can also take the Percocet as needed for severe pain. Please follow-up with your primary care physician within 1 to 2 weeks after discharge. Pending Studies at Discharge: No Stand-Alone Forms: My [facility], Smoking Cessation Medications and DC Order Prescriptions: Continued atorvastatin 20 mg tablet 20 mg PO HS RF: 0 triamterene-hydrochlorothiazid 37.5-25 mg tablet 1 tab PO DAILY RF: 0 irbesartan 150 mg tablet 150 mg PO HS RF: 0 duloxetine 30 mg capsule,delayed release(DR/EC) 30 mg PO HS RF: 0 Discontinued ciprofloxacin HCl [Cipro] 500 mg tablet 500 mg PO BID RF: 0 No Action buspirone 7.5 mg tablet 7.5 mg PO BID PRN (Reason: Anxiety) RF: 0 diclofenac sodium 75 mg tablet,delayed release (DR/EC) 75 mg PO BID RF: 0 ondansetron 4 mg tablet,disintegrating 4 mg PO Q6H PRN (Reason: nausea and vomiting) Qty: 15 RF: 0 omeprazole magnesium [Prilosec OTC] 20 mg tablet,delayed release (DR/EC) 20 mg PO BID 30 Days Qty: 60 RF: 0 famotidine [Pepcid] 20 mg tablet 20 mg PO BID PRN (Reason: gastric reflux) 28 Days Qty: 56 RF: 0 ondansetron HCl [Zofran] 4 mg tablet 4 mg PO Q6H PRN (Reason: nausea and vomiting) Qty: 10 RF: 0 Discharge Orders: Discharge Order (Routine); Ordered 10/30/19 Ordered By: Julisa Aguirre/Other Patient Handouts: What Is Bursitis? Admission Data Admit Date/Time: 10/29/19 03:24 Attending Provider: Julisa Magallon Admit Provider: Usha Arreguin Primary Care Provider: Usha Arreguin Other Providers: Roby Lozada Other Interventions: Discharge Summary Assessment (RN) Last Done: 10/30/19 18:56 DC Date/Time DO NOT enter until pt leaves facility: 10/30/19 19:20 Coding Level of Care Code 92192 OBS Care - Discharge Diagnoses Abdominal pain R10.9 Right groin pain R10.31 Lower back pain M54.5 History of ovarian cancer Z85.43 HTN (hypertension), benign I10 Hyperlipidemia E78.5 Depression F32.9 DVT prophylaxis Z29.9
--- NOTE | 2019-10-30 19:26 | XRay Report ---
RIGHT HIP 2 VIEWS CLINICAL HISTORY: Right hip pain. FINDINGS: AP and frog-leg views of the right hip are correlated with pelvic CT dated 10/29/2019. The s keletal structures appear osteopenic. No fracture is identified involving the right hip or the visual ized hemipelvis. Mild joint space narrowing is noted in the right hip. There is degenerative sclerosi s of the right sacroiliac joint and the pubic symphysis. The overlying soft tissues are normal as nancy ged. IMPRESSION: No acute bony abnormality is identified. Electronically signed by: Mustapha De Leon M.D. 10/30/2019 7:24 PM
== END 2019-10-30 19:20 | disposition home or self-care (01) ==
LOC: ED 22:12 → 3W 22:12 → SUATTDRO 10-29 03:24 → 3W 10-29 04:02